=== PATIENT | male | born 1980 | race Caucasian/White ===

== ENCOUNTER 2018-01-29 14:06 | Emergency (ER) | payer SELFPAY ==
[2018-01-29 14:10] VITALS: BP 180/123; PULSE 86; RESP 18; TEMP 36.4; O2SAT 98
--- NOTE | 2018-01-29 14:21 | ED.GENADUL_ITS ---
Disposition Clinical Impression: Infected dental caries, Partial loss of tooth due to caries Disposition: HOME Condition: Stable Instructions: Dental Caries (ED) Additional Instructions: Return immediately to the emergency department for any swelling of your tongue, back your throat, high fever chills, difficulty breathing or swallowing, or significant worsening of symptoms. Otherwise it is very important that you obtain a dental appointment as soon as possible and follow-up with your primary care provider next week for reassessment. Prescriptions: Clindamycin [Cleocin] 450 mg PO Q8H #63 cap Diclofenac Sodium 50 mg PO Q8H PRN #15 tablet. PRVan Reason: Pain Topiramate [Topamax] 50 mg PO HS #7 tab TraMADol [Ultram] 50 mg PO Q8H PRN #6 tab PRN Reason: Severe Pain Referrals: [facility] [Provider Group] - 02/04/18 10:15 am (For reassessment of your dental condition along with refill of your normal prescribed medications.) Forms: Work Release Medical Decision Making - Medical Decision Making Patient presenting to the emergency department for for fractured tooth that occurred 1 month ago with worsening pain and discomfort. Upon evaluation there is severe pulp exposure to tooth #3 and 4 both of them being partially fractured and erythema with mild gingival enlargement surrounding these teeth. There is concern for infection so plan to place patient on clindamycin due to penicillin allergy. For pain control patient consented to dental block and so 1 mL of 0.5% Marcaine was instilled into the base of these teeth. After waiting 10 minutes patient was reassessed and states that he did have relief pain surrounding tooth #4 but not as much to tooth #3. Patient was offered to have additional dental block performed and he stated that he felt some reduction in discomfort and did not want additional dental block performed. Given the patient is still having significant discomfort he was given 1 tramadol. I personally reviewed the [place] drug database on this patient and find no suspicion of opioid abuse. Informed patient of risks versus benefits of narcotic pain control along with non-opiate pain relievers that he may utilize while on prescribed medications. Patient consented to receiving opiate pain meds. Patient also was prescribed limited supply of tramadol for home use along with diclofenac and informed to stop or gels as I feel that he is overusing these along with ibuprofen while on diclofenac. After discussion of diagnosis and plan of care with patient patient agreed and stated no further needs, questions, or concerns at this time. History of Present Illness - General Chief complaint: DentalOral Stated complaint: NAUSEA/VOMITING TOOTH INFECTION Time Seen by Provider: 01/29/18 14:08 Source: patient, RN notes reviewed Mode of arrival: ambulatory Limitations: no limitations - History of Present Illness Initial comments: Reports 1 month ago he was biting down on a hamburger and bit a hard piece of cartilage and felt his right upper tooth break. Since then he has had pain and discomfort which is been manageable but has had worsening symptoms over the past 2 weeks. Approximately 1 week ago he stated 3 days of fever and chills that went along with this and he is missed the past 2 days of work due to severe pain. He states he has been taking a significant amount of ibuprofen and Orajel that is making his stomach upset. Patient states that he has had poor dentition for a while and has been unable to see a dentist due to lack of dental insurance. He does state that his dental insurance will begin in 2 weeks and he is planning on seeing a dentist at that time. Patient denies any difficulty breathing, swallowing. Onset/Timin -: month(s) Location: mouth Severity scale (1-10): 10 Quality: sharp Consistency: constant Improves with: none Worsens with: none Associated Symptoms: denies other symptoms Treatments Prior to Arrival: NSAID - Related Data Omeprazole [Prilosec] 40 mg PO DAILY PRN 09/27/12 Ibuprofen 600 mg PO DAILY PRN PRN 12/23/16 Clindamycin [Cleocin] 450 mg PO Q8H #63 cap 01/29/18 Diclofenac Sodium 50 mg PO Q8H PRN #15 tablet. 01/29/18 Topiramate [Topamax] 50 mg PO HS #7 tab 01/29/18 TraMADol [Ultram] 50 mg PO Q8H PRN #6 tab 01/29/18 Allergies Allergy/AdvReac Type Severity Reaction Status Date / Time Sulfa (Sulfonamide Allergy Intermediate NAUSEA AND Unverified 01/29/18 14:19 Antibiotics) HEADACHE penicillin V potassium Allergy Skin Rash Unverified 01/29/18 14:19 [From Pen-Vee K] ziprasidone HCl [From Geodon] Allergy SEDATION, Unverified 01/29/18 14:19 TREMOR codeine AdvReac hyper Unverified 01/29/18 14:19 NICOTINE PATCH Allergy Intermediate RASH Uncoded 01/29/18 14:19 Review of Systems Constitutional: chills, fever, malaise. denies: diaphoresis Eyes: denies: vision change ENT: dental pain. denies: ear pain, throat pain, congestion Respiratory: denies: cough, stridor, wheezing Gastrointestinal: nausea (Due to amount of ibuprofen he has been taking) Comment: All other systems reviewed and negative Past Medical History - Past Medical History Medical history: asthma migraines, asthma, hep c, bipolar, GERD. Surgical history: appendectomy - Social History Smoking status: current everyday smoker Alcohol use: none Drug use: marijuana General Exam - General Limitations: no limitations General appearance: alert, other (In obvious discomfort holding right side of face) - Eye Eye exam: Present: normal apperance - ENT ENT exam: Present: mucous membranes moist, TM's normal bilaterally, normal external ear exam - Expanded ENT Exam No standard instances Mouth exam: Present: tongue normal. Absent: drooling, trismus, muffled voice, tongue elevation Teeth exam: Present: dental caries (Throughout entire oral cavity), fractured tooth # (Of concern is fracture tooth #3 and 4 with exposed pulp), gingival enlargement (Surrounding tooth 3 and 4), other (Patient has multiple missing teeth and fractured teeth throughout oral cavity with very poor dentition) - Neck Neck exam: Present: normal inspection, full ROM. Absent: meningismus, lymphadenopathy - Respiratory Respiratory exam: Absent: respiratory distress, wheezes, stridor - Neurological Exam Neurological exam: Present: alert, oriented X3. Absent: altered - Skin Skin exam: Present: warm, dry Course Vital Signs - 24 hr 01/29/18 14:10 Temperature 36.4 C L Pulse 86 Respiratory 18 Rate Blood Pressure 180/123 Pulse Oximetry 98
[2018-01-29] MEDS: Clindamycin 150 MG CAP 450 MG PO (14:31)
[2018-01-29] MEDS: Bupivacaine 0.5% Pres-Free 30 ML VIAL IJ (14:32)
--- NOTE | 2018-01-29 14:45 | NUR.NOTE ---
Nursing Note: Appt. with Preston Galeana at [facility] on @ 1015. Deepa Bergman.
[2018-01-29] MEDS: traMADol 50 MG TAB PO (15:15)
[2018-01-29 15:23] VITALS: BP 143/93; PULSE 74; RESP 18; TEMP 36.8; O2SAT 99
== END 2018-01-29 15:25 | disposition home or self-care (01) ==
PROVIDERS: Emergency Provider Student in an Organized Health Care Education/Training Program; PCP Specialist/Technologist Athletic Trainer
DX: K02.9 Dental caries, unspecified (principal); Z88.0 Allergy status to penicillin
CPT/HCPCS: 64402; 99283

== ENCOUNTER 2018-07-10 12:07 | Emergency (ER) | payer SELFPAY ==
[2018-07-10 12:11] VITALS: BP 140/68; PULSE 65; RESP 18; TEMP 36.7; O2SAT 96
--- NOTE | 2018-07-10 15:18 | NUR.NOTE ---
assessed eye patient to the [facility] Nursing Note:
--- NOTE | 2018-07-10 15:20 | W.ED.GENAD ---
Discharge Plan Disposition Patient Disposition: HOME Condition: Stable Discharge Details Chief Complaint: EyeProblem Clinical Impression: Conjunctivitis, Blurred vision, Photophobia Primary Care Provider: Preston Galeana ED Provider: Edelmira Morales Home Meds and New Rx's Prescriptions: Continued omeprazole [Prilosec] 40 MG capsule,delayed release(DR/EC) 40 mg PO DAILY PRNRF: 0 ibuprofen 600 MG tablet 600 mg PO DAILY PRN PRNRF: 0 topiramate [Topamax] 50 MG tablet 50 mg PO HS Qty: 7 RF: 0 Discharge Instructions Instructions: Conjunctivitis (ED) Additional Instructions: Go directly to [facility] ([phone]) in [facility]. You will be evaluated there for further instructions regarding possible infection versus another cause to your symptoms. Return immediately to the emergency department any worsening or new concerning symptoms. Discharge Data Discharge Physician: Edelmira Morales Medical Decision Making 29-year-old male who presents with left eye blurry vision, eye pain, white and yellow discharge, photophobia for the past 2 days after getting metal bits into his eye at work states he was able to remove majority of the metal bits with flushing. Tetanus up-to-date. OD 20/30, OS 20/70. Vitals within normal limits. Patient appears nontoxic. Left eye appears irritated, with clear and yellow drainage, and conjunctival injection. No obvious foreign body with eyelid eversion or slit-lamp exam. No abnormal fluorescein uptake. Upon funduscopic exam, vessels appear normal but there is a red haziness noted. No afferent pupillary defect, but patient does have pain in left eye when light shown in right eye. Patient has injection and yellow discharge, this would be consistent with conjunctivitis, however with photophobia and pain with pupillary constriction, concerned about another acute process. Discussed with [facility] and they will evaluate patient now. Patient discharged to [facility]. They will give antibiotics if needed. HPI General Mode of arrival: ambulatory. Date/Time Provider Initiated Documentation: 07/10/18 12:23. Limitations to Documentation: no limitations. Information obtained by: patient. HPI Narrative: Patient is a 37-year-old male who presents to the ED with a complaint of left eye blurry vision, irritation, photophobia as well as mucousy white and yellow discharge for the past 2 days. Patient states symptoms started after he got metal chips into his eye while at work. Patient states he rubbed his eye and was able to remove multiple small pieces of metal but then still has sensation of pain irritation and blurry vision. Patient states when he looks at the son he has worsening pain. Patient flushed his eye with water, use Q-tips, and ran it under water in the shower without relief. Patient does not wear contacts. Last tetanus up-to-date 4 years ago. Related Data Home Medications Medication Instructions Recorded Confirmed omeprazole [Prilosec] 40 mg PO DAILY PRN 09/27/12 07/10/18 ibuprofen 600 mg PO DAILY PRN PRN 12/23/16 07/10/18 topiramate [Topamax] 50 mg PO HS #7 tab 01/29/18 07/10/18 Previous Rx's Medication Instructions Recorded topiramate [Topamax] 50 mg PO HS #7 tab 01/29/18 Allergies Allergy/AdvReac Type Severity Reaction Status Date / Time Sulfa (Sulfonamide Allergy Intermediate NAUSEA AND Unverified 01/29/18 14:19 Antibiotics) HEADACHE penicillin V potassium Allergy Skin Rash Unverified 01/29/18 14:19 [From Pen-Vee K] ziprasidone HCl [From Geodon] Allergy SEDATION, Unverified 01/29/18 14:19 TREMOR codeine AdvReac hyper Unverified 01/29/18 14:19 NICOTINE PATCH Allergy Intermediate RASH Uncoded 01/29/18 14:19 General Stated Complaint: EyeProblem CHACORTA: 4 Review of Systems Review of Systems All systems reviewed & are unremarkable except as noted in HPI and below Constitutional Reports as per HPI, Denies chills and Denies fever(s) Eyes Reports blurry vision, Reports eye discharge, Reports eye pain and Reports photophobia ENT Denies dizziness, Denies sore throat and Denies throat swelling Cardiovascular Denies chest pain and Denies dyspnea Respiratory Denies dyspnea Gastrointestinal Denies abdominal pain, Denies diarrhea and Denies vomiting Genitourinary Denies hematuria and Denies dysuria Musculoskeletal Denies back pain and Denies numbness Integumentary/Breasts Denies lesions and Denies rash Neurologic Denies dizziness and Denies numbness Allergic/Immunologic Denies throat swelling [facility] Medical History Asthma (Chronic) Bipolar disorder (Chronic) COPD (chronic obstructive pulmonary disease) (Chronic) Depression (Chronic) GERD (gastroesophageal reflux disease) (Chronic) Hepatitis C (Chronic) Surgical History History of appendectomy (Chronic) Social History Smoking/Tobacco Use Status: Current every day alcohol intake: current alcohol intake frequency: a few times a week substance use type: does not use Exam Const General: cooperative, healthy appearing and no acute distress HENMT Head: normal to inspection Mouth: oral mucosae normal Eyes Periorbital: periorbital findings normal Eyelids: eyelids normal Conjunctivae: conjunctival abnormality left conjunctival injection and other (yellow discharge on exam) Cornea: corneas normal Pupils: PERRL EOM: EOM intact bilaterally Direct ophthalmoscopy: consensual photophobia positive consensual response in the left eye and no papilledema Neck Neck: normal visual inspection Resp Effort & Inspection: normal respiratory effort and able to speak in complete sentences Cardio Rate: regular rate Skin General skin exam: no rashes or lesions noted Neuro General: alert, awake and oriented x3 Motor: muscle tone normal throughout Extrem General: normal to inspection and full ROM Psych Appearance: grossly normal Affect: normal affect Course Vital Signs Temperature 98.1 F 07/10/18 12:11 Pulse 65 07/10/18 12:11 Respiratory Rate 18 07/10/18 12:11 Blood Pressure 140/68 07/10/18 12:11 Pulse Oximetry 96 07/10/18 12:11 Temperature 98.1 F 07/10/18 12:11 Temperature Source Temporal Artery Scan 07/10/18 12:11 Pulse 65 07/10/18 12:11 Respiratory Rate 18 07/10/18 12:11 Blood Pressure 140/68 07/10/18 12:11 Pulse Oximetry 96 07/10/18 12:11 Oxygen Delivery Method Room Air 07/10/18 12:11 Oxygen Flow Rate 0 07/10/18 12:11
--- NOTE | 2018-07-10 15:24 | ED.GENADUL_ITS ---
Discharge Plan Disposition Patient Disposition: HOME Condition: Stable Discharge Details Chief Complaint: EyeProblem Clinical Impression: Conjunctivitis, Blurred vision, Photophobia Primary Care Provider: Preston Galeana ED Provider: Edelmira Morales Home Meds and New Rx's Prescriptions: Continued omeprazole [Prilosec] 40 MG capsule,delayed release(DR/EC) 40 mg PO DAILY PRNRF: 0 ibuprofen 600 MG tablet 600 mg PO DAILY PRN PRNRF: 0 topiramate [Topamax] 50 MG tablet 50 mg PO HS Qty: 7 RF: 0 Discharge Instructions Instructions: Conjunctivitis (ED) Additional Instructions: Go directly to [facility] ([phone]) in [facility]. You will be evaluated there for further instructions regarding possible infection versus another cause to your symptoms. Return immediately to the emergency department any worsening or new concerning symptoms. Discharge Data Discharge Physician: Edelmira Morales Medical Decision Making 29-year-old male who presents with left eye blurry vision, eye pain, white and yellow discharge, photophobia for the past 2 days after getting metal bits into his eye at work states he was able to remove majority of the metal bits with flushing. Tetanus up-to-date. OD 20/30, OS 20/70. Vitals within normal limits. Patient appears nontoxic. Left eye appears irritated, with clear and yellow drainage, and conjunctival injection. No obvious foreign body with eyelid eversion or slit-lamp exam. No abnormal fluorescein uptake. Upon funduscopic exam, vessels appear normal but there is a red haziness noted. No afferent pupillary defect, but patient does have pain in left eye when light shown in right eye. Patient has injection and yellow discharge, this would be consistent with conjunctivitis, however with photophobia and pain with pupillary constriction, concerned about another acute process. Discussed with [facility] and they will evaluate patient now. Patient discharged to go directly to [facility] now. They will give antibiotics if needed. HPI General Mode of arrival: ambulatory . Date/Time Provider Initiated Documentation: 07/10/18 12:23 . Limitations to Documentation: no limitations . Information obtained by: patient . HPI Narrative: Patient is a 37-year-old male who presents to the ED with a complaint of left eye blurry vision, irritation, photophobia as well as mucousy white and yellow discharge for the past 2 days. Patient states symptoms started after he got metal chips into his eye while at work. Patient states he rubbed his eye and was able to remove multiple small pieces of metal but then still has sensation of pain irritation and blurry vision. Patient states when he looks at the son he has worsening pain. Patient flushed his eye with water, use Q-tips, and ran it under water in the shower without relief. Patient does not wear contacts. Last tetanus up-to-date 4 years ago. Related Data Home Medications Medication Instructions Recorded Confirmed omeprazole [Prilosec] 40 mg PO DAILY PRN 09/27/12 07/10/18 ibuprofen 600 mg PO DAILY PRN PRN 12/23/16 07/10/18 topiramate [Topamax] 50 mg PO HS #7 tab 01/29/18 07/10/18 Previous Rx's Medication Instructions Recorded topiramate [Topamax] 50 mg PO HS #7 tab 01/29/18 Allergies Allergy/AdvReac Type Severity Reaction Status Date / Time Sulfa (Sulfonamide Allergy Intermediate NAUSEA AND Unverified 01/29/18 14:19 Antibiotics) HEADACHE penicillin V potassium Allergy Skin Rash Unverified 01/29/18 14:19 [From Pen-Vee K] ziprasidone HCl [From Geodon] Allergy SEDATION, Unverified 01/29/18 14:19 TREMOR codeine AdvReac hyper Unverified 01/29/18 14:19 NICOTINE PATCH Allergy Intermediate RASH Uncoded 01/29/18 14:19 General Stated Complaint: EyeProblem CHACORTA: 4 Review of Systems Review of Systems All systems reviewed & are unremarkable except as noted in HPI and below Constitutional Reports as per HPI, Denies chills and Denies fever(s) Eyes Reports blurry vision, Reports eye discharge, Reports eye pain and Reports photophobia ENT Denies dizziness, Denies sore throat and Denies throat swelling Cardiovascular Denies chest pain and Denies dyspnea Respiratory Denies dyspnea Gastrointestinal Denies abdominal pain, Denies diarrhea and Denies vomiting Genitourinary Denies hematuria and Denies dysuria Musculoskeletal Denies back pain and Denies numbness Integumentary/Breasts Denies lesions and Denies rash Neurologic Denies dizziness and Denies numbness Allergic/Immunologic Denies throat swelling [facility] Medical History Asthma (Chronic) Bipolar disorder (Chronic) COPD (chronic obstructive pulmonary disease) (Chronic) Depression (Chronic) GERD (gastroesophageal reflux disease) (Chronic) Hepatitis C (Chronic) Surgical History History of appendectomy (Chronic) Social History Smoking/Tobacco Use Status: Current every day alcohol intake: current alcohol intake frequency: a few times a week substance use type: does not use Exam Const General: cooperative, healthy appearing and no acute distress HENMT Head: normal to inspection Mouth: oral mucosae normal Eyes Periorbital: periorbital findings normal Eyelids: eyelids normal Conjunctivae: conjunctival abnormality left conjunctival injection and other (yellow discharge on exam) Cornea: corneas normal Pupils: PERRL EOM: EOM intact bilaterally Direct ophthalmoscopy: consensual photophobia positive consensual response in the left eye and no papilledema Neck Neck: normal visual inspection Resp Effort & Inspection: normal respiratory effort and able to speak in complete sentences Cardio Rate: regular rate Skin General skin exam: no rashes or lesions noted Neuro General: alert, awake and oriented x3 Motor: muscle tone normal throughout Extrem General: normal to inspection and full ROM Psych Appearance: grossly normal Affect: normal affect Course Vital Signs Temperature 98.1 F 07/10/18 12:11 Pulse 65 07/10/18 12:11 Respiratory Rate 18 07/10/18 12:11 Blood Pressure 140/68 07/10/18 12:11 Pulse Oximetry 96 07/10/18 12:11 Temperature 98.1 F 07/10/18 12:11 Temperature Source Temporal Artery Scan 07/10/18 12:11 Pulse 65 07/10/18 12:11 Respiratory Rate 18 07/10/18 12:11 Blood Pressure 140/68 07/10/18 12:11 Pulse Oximetry 96 07/10/18 12:11 Oxygen Delivery Method Room Air 07/10/18 12:11 Oxygen Flow Rate 0 07/10/18 12:11
== END 2018-07-10 15:30 | disposition home or self-care (01) ==
PROVIDERS: Emergency Provider Physician Assistant; PCP Specialist/Technologist Athletic Trainer
DX: H10.32 Unspecified acute conjunctivitis, left eye (principal); H53.8 Other visual disturbances; H53.142 Visual discomfort, left eye; J44.9 Chronic obstructive pulmonary disease, unspecified; F17.210 Nicotine dependence, cigarettes, uncomplicated
CPT/HCPCS: 99283

== ENCOUNTER 2019-04-28 09:47 | Emergency (ER) | payer SELFPAY ==
[2019-04-28 09:53] VITALS: BP 147/84; PULSE 84; RESP 16; TEMP 37; O2SAT 98
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
[2019-04-28] MEDS: Normal Saline Flush 10 ML SYR IVP (10:35)
[2019-04-28] MEDS: Ketorolac 30 MG/ML VIAL IVP (10:35)
[2019-04-28] MEDS: Normal Saline 1,000 ML 150 ML IV (10:38)
[2019-04-28 10:39] LABS: Abs Immature Grans 0.01 k/cumm (0.0-0.09); Absolute Basophil Count 0.02 k/cumm (0.0-0.2); Absolute Eosinophil Count 0.06 k/cumm (0.0-0.7); Absolute Lymphocyte Count 2.45 k/cumm (1.2-3.4); Absolute Neutrophil Count 4.86 k/cumm (1.2-6.7); Basophils % 0.2; Eosinophils % 0.7; HCT 46.6 % (40.0-50.0); HGB 15.8 g/dL (13.5-17.5); Immature Grans % 0.1; Lymphocytes % 30.2; Mean Corp. HGB Concentration 33.9 g/dL (32.0-36.0); Mean Corpuscular Hemoglobin 30.1 pg (27.0-33.0); Mean Corpuscular Volume 88.8 fL (80-95); Mean Platelet Volume 10.6 fL (8.0-11.0); Monocytes % 8.6; Neutrophils % 60.2; Platelet Count 278 x1000/uL (130-400); RBC 5.25 m/cumm (4.50-6.00); RBC Distribution Width 12.5 % (11.8-14.1)
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
[2019-04-28 10:50] LABS: ALT 60 U/L (16-63); AST 28 U/L (15-37); Albumin 4.2 g/dL (3.4-5.0); Alkaline Phosphatase 55 U/L (46-116); Anion Gap 8.8 mmol/L (3-11); BUN 7 mg/dL (7-18); Bilirubin, Total 0.5 mg/dL (0.2-1.0); CO2 25.2 mmol/L (21.0-32.0); CREATININE 0.77 mg/dL (0.70-1.30); Calcium 8.8 mg/dL (8.5-10.1); Chloride 104 mmol/L (98-107); Glucose 97 mg/dL (70-100); Potassium 3.9 mmol/L (3.5-5.1); Sodium 138 mmol/L (136-145); Total Protein 8.1 g/dL (6.4-8.2)
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
[2019-04-28] MEDS: Omnipaque 350 MG/ML 100 ML BTL IJ (10:57)
[2019-04-28] MEDS: Lidocaine 5% Patch 1 PATCH TP (12:11)
[2019-04-28 12:21] VITALS: BP 156/99; PULSE 74; O2SAT 98
== END 2019-04-28 12:30 | disposition home or self-care (01) ==
PROVIDERS: Emergency Provider Emergency Medicine; PCP Specialist/Technologist Athletic Trainer
DX: S39.012A Strain of muscle, fascia and tendon of lower back, initial encounter (principal); J44.9 Chronic obstructive pulmonary disease, unspecified; F17.210 Nicotine dependence, cigarettes, uncomplicated; V40.0XXA Car driver injured in collision with pedestrian or animal in nontraffic accident, initial encounter
CPT/HCPCS: 36415; 74177; 80053; 96361; 96374; 99285; 70450; 71260; 72125; 85025; 99284; J1885; J3490

== ENCOUNTER 2019-09-04 06:26 | Emergency (ER) | payer SELFPAY ==
[2019-09-04 06:29] VITALS: BP 124/76; PULSE 104; RESP 22; TEMP 36.9; O2SAT 95
--- NOTE | 2019-09-04 06:49 | ED.GENADUL_ITS ---
Discharge Plan Disposition Patient Disposition: HOME Condition: Good Discharge Details Chief Complaint: RespSymp Clinical Impression: Community acquired pneumonia, Viral URI with cough Primary Care Provider: Preston Galeana ED Provider: Aaron Dyer Home Meds and New Rx's Prescriptions: New doxycycline hyclate 100 mg tablet 100 mg PO BID Qty: 20 RF: 0 Discharge Instructions Instructions: Pneumonia (ED) Additional Instructions: At this time I am concerned that you have clinical evidence for left-sided pneumonia. Please take the antibiotic as directed. Take it with food, and avoid any dairy while taking this. Please use your inhaler, 2 puffs every 4-6 hours as needed. At this time your symptoms are very concerning for coronavirus. Due to the increased likelihood of your symptoms being from coronavirus the CDC does recommend testing. It takes 48 to 72 hours at the earliest for the test results to return. If you do not hear from the hospital in 48 to 72 hours, please contact [facility]. Out of an abundance of precaution it is highly recommended that you self quarantine yourself for a total of 14 days or until symptom-free for greater than 24 to 48 hours. It would be prudent to wear a mask at all times, always wash her hands frequently, and follow-up closely with your primary care provider. It is recommended that you call your primary care provider prior to reassessment. If you are going to a health facility, please call/contact them before you arrive. At this time based on your current symptoms the CDC does not recommend admission, and there is no current clinical indication for your admission here at the hospital. However it is vitally important to monitor your symptoms closely, and if you notice any worsening of your symptoms, or any new symptoms such as worsening shortness of breath, difficulty breathing, persistent fever, worsening chills, chest pain, numbness, weakness, or fainting please call and then return immediately to the emergency department for reevaluation. Please call your primary care provider as soon as possible to make them aware of your current situation and for continued monitoring. As always, it was a pleasure participating in your medical care today. Stand Alone Forms: PENDING COVID-19 TESTING Referrals: Preston Galeana [Primary Care Provider] - Medical Decision Making 39-year-old male with a past medical history of asthma/COPD, tobacco abuse, previous appendectomy, hepatitis C secondary to blood transfusion during episode of appendectomy, presents today for evaluation of cough. Patient works at [employer]. Patient states that for the last week and 1/2 to 2 weeks he has had a mild cough, he has had occasional intermittent chills, no fever greater than 100 though. Symptoms worse in the morning, better in the afternoon. Cough is been productive and progressively worsening. He did admit to a single episode where there was a small speck of blood in his sputum, but this is since resolved. Patient does admit to shortness of breath with his cough, however he denies any chest pain, exertional chest pain or pleuritic chest pain. Of concern the patient does work at [employer], his boss is from [place], and recently just went to a conference which had multiple confirmed Covid cases. Uncertain if boss has tested positive however he has been out of work secondary to being sick just before the patient symptoms began. Denies PE risk factors such as recent long car rides, immobilization, recent surgery, prior history of DVT or PE, family history of PE or DVT, morbid obesity, exogenous estrogen and smoking, hemoptysis, history of cancer. Patient does not use any breathing treatments. Physical exam demonstrates no evidence of significant respiratory distress. Patient does demonstrate crackles in the left lower lobe. No rhonchi, no wheezes. Symptoms concerning for community-acquired pneumonia. Patient did not receive his flu shot this year. Differential is highest for bacterial pneumonia, and potential influenza. Less likely but definitely of concern is possible coronavirus. We will test for flu, get chest x-ray, give inhaler, monitor closely and reassess. Influenza test negative. Chest x-ray negative. Currently the patient does have a concerning contact history to a high risk area, and/or direct or known indirect exposure to an area and/or patient's with suspected coronavirus activity. The patient demonstrates some concerning red flags as noted by the CDC for coronavirus including subjective fever, cough, and/or shortness of breath. The patient looks notably clinically well, and does not demonstrate evidence of respiratory distress, significant or severe illness, or sepsis. Per CDC recommendations, coronavirus testing has been performed and is approved by the [facility]. Additionally patient currently does not demonstrate symptoms indicative of admission or further observation here. At this time based on the patient's current clinical picture symptoms are likely secondary to a non- coronavirus viral illness. However the patient also does demonstrate evidence concerning for clinical left-sided pneumonia, we will treat with doxycycline, and given inhaler for home use. Out of an abundance of precaution taking into account the current level of national concern, the patient's entire clinical picture, and CDC recommendations, the patient can be discharged home. Per CDC recommendations we will recommend a 14-day quarantine of the patient I have discussed good handwashing techniques, the importance of a mask, and we have also included CDC recommendations for home monitoring and isolation. I have extensively reviewed the treatment plan and [facility] I have addressed all patient concerns at this time. The patient was made aware of what symptoms to monitor for that would warrant a return to the emergency department. I also discussed the importance of calling the patient's PCP, as well as the ED for any concerns or prior to return. Discussed the plan with the patient, they demonstrate verbal understanding and agreement with our assessment and plan at this time. FINDINGS: Lungs: Unremarkable. No consolidation. Pleural space: Unremarkable. No pleural effusion. No pneumothorax. Heart/Mediastinum: Unremarkable. No cardiomegaly. Bones/joints: Unremarkable. IMPRESSION: No acute findings. Thank you for allowing us to participate in the care of your patient. Dictated and Authenticated by: Debbie Pereira MD 09/04/2019 7:42 AM Eastern Time ([place] & [place]) HPI General Date/Time Provider Initiated Documentation: 09/04/19 06:32 . HPI Narrative: 39-year-old male with a past medical history of asthma/COPD, tobacco abuse, previous appendectomy, hepatitis C secondary to blood transfusion during episode of appendectomy, presents today for evaluation of cough. Patient works at [employer]. Patient states that for the last week and 1/2 to 2 weeks he has had a mild cough, he has had occasional intermittent chills, no fever greater than 100 though. Symptoms worse in the morning, better in the afternoon. Cough is been productive and progressively worsening. He did admit to a single episode where there was a small speck of blood in his sputum, but this is since resolved. Patient does admit to shortness of breath with his cough, however he denies any chest pain, exertional chest pain or pleuritic chest pain. Denies PE risk factors such as recent long car rides, immobilization, recent surgery, prior history of DVT or PE, family history of PE or DVT, morbid obesity, exogenous estrogen and smoking, hemoptysis, history of cancer. Patient does not use any breathing treatments. Related Data Home Medications Medication Instructions Recorded Confirmed doxycycline hyclate 100 mg PO BID #20 tab 09/04/19 Previous Rx's Medication Instructions Recorded doxycycline hyclate 100 mg PO BID #20 tab 09/04/19 Allergies Allergy/AdvReac Type Severity Reaction Status Date / Time nicotine [From Nicoderm CQ] Allergy Intermediate Skin Rash Unverified 09/04/19 06:33 from patch penicillin V potassium Allergy Skin Rash Unverified 09/04/19 06:33 [From Pen-Vee K] Sulfa (Sulfonamide AdvReac Intermediate NAUSEA AND Unverified 09/04/19 06:33 Antibiotics) HEADACHE codeine AdvReac hyper Unverified 09/04/19 06:33 ziprasidone HCl [From Geodon] AdvReac SEDATION, Unverified 09/04/19 06:33 TREMOR General Stated Complaint: RespSymp CHACORTA: 3 Review of Systems All systems reviewed & are unremarkable except as noted in HPI and below PFSH Social History Smoking/Tobacco Use Status: Current every day Alcohol Intake: current Alcohol Intake frequency: a few times a week Drug use: Occasionally Substance use type: marijuana Do you feel safe at home: Yes Do you feel safe in your relationship?: Yes Exam Narrative Exam Narrative: 1.Const: Well-nourished, Well-developed, appearing stated age 2.Eyes: PERRL, no conjunctival injection, and symmetrical lids. 3.ENT: Atraumatic external nose and ears. Moist MM. Neck: Symmetric, trachea midline, No thyromegaly. 4.CVS: +S1/S2, No murmurs or gallops. Peripheral pulses 2+ and equal in all extremities. Brisk capillary refill in all extremities. 5.RESP: Unlabored respiratory effort. Oxygenation stable, no respiratory distress. Crackles noted in the left lower lung lobe. No rhonchi. No wheeze. 6.GI: Soft, Nontender/Nondistended, No hepatosplenomegaly. No guarding or rebound. 7.MSK: Normocephalic/Atraumatic, Extremities w/o deformity or ttp No cyanosis or clubbing, Normal movement of all extremities 8.Skin: Warm, Dry. No rashes or lesions. 9.Neuro: delivery rn II-XII grossly intact. Sensation grossly intact, no focal neurol ogic deficits. 10.Psych: (AAO) x3. Appropriate mood and affect Course Vital Signs Vital signs: Vital Signs Temperature 36.9 C 09/04/19 06:29 Pulse 104 H 09/04/19 06:29 Respiratory Rate 22 09/04/19 06:29 Blood Pressure 124/76 09/04/19 06:29 Pulse Oximetry 95 09/04/19 06:29 Temperature 36.9 C 09/04/19 06:29 Temperature Source Oral 09/04/19 06:29 Pulse 104 H 09/04/19 06:29 Respiratory Rate 22 09/04/19 06:29 Respiratory Effort Non-Labored 09/04/19 06:33 Respiratory Depth Normal 09/04/19 06:33 Blood Pressure 124/76 09/04/19 06:29 Blood Pressure Position Sitting 09/04/19 06:29 Pulse Oximetry 95 09/04/19 06:29 Oxygen Delivery Method Room Air 09/04/19 06:29 Oxygen Flow Rate 0 09/04/19 06:29 Pain Level 8 09/04/19 06:29 Sign Out Sign Out Data: Sign Out Comment: Discharge instructions and prescription has been signed and printed. Pending chest x-ray results and flu testing. Suspect community- acquired pneumonia, recommending COVID precautions. Last updated by Aaron Dyer DO at 09/04/19 07:38
--- NOTE | 2019-09-04 07:04 | DI.RAD_ITS ---
EXAM: XR PORTABLE CHEST AP XR PORTABLE CHEST AP CLINICAL HISTORY: evla for infiltrate. evla for infiltrate TECHNIQUE: 2D digital imaging was performed. COMPARISON: CHEST 2 VIEWS PA,LAT from 12/11/2016 FINDINGS: LUNGS: Clear. No pleural abnormality seen. HEART: Normal. MEDIASTINUM: Normal. OTHER FINDINGS: None. IMPRESSION: No acute pulmonary findings. DATA REPOSITORY: RADIATION DOSE DELIVERED:
[2019-09-04] MEDS: Albuterol HFA 8 GM 60 PUFF INH IH (07:08)
[2019-09-04] MEDS: Doxycycline Hyclate 100 MG, 2 CAPS/BTL PO (07:23)
[2019-09-04] MEDS: Doxycycline Hyclate 100 MG CAP PO (07:23)
--- NOTE | 2019-09-04 07:42 | DI.VRAD_ITS ---
PROCEDURE INFORMATION: Exam: XR Chest, 1 View Exam date and time: 09/04/2019 7:05 AM Age: 39 years old Clinical indication: Cough; Additional info: Eval for infiltrate TECHNIQUE: Imaging protocol: XR of the chest Views: 1 view. COMPARISON: CR CHEST 2 VIEWS PA,LAT 12/11/2016 1:04 PM FINDINGS: Lungs: Unremarkable. No consolidation. Pleural space: Unremarkable. No pleural effusion. No pneumothorax. Heart/Mediastinum: Unremarkable. No cardiomegaly. Bones/joints: Unremarkable. IMPRESSION: No acute findings. Dictated and Authenticated by: Debbie Pereira MD. Ordering:ANDRES Walker MD
[2019-09-04 08:04] VITALS: BP 124/76; PULSE 104; RESP 22; TEMP 36.9; O2SAT 95
[2019-09-08 10:57] LABS: COVID-19 RT-PCR Result Not Detected (NotDetected)
== END 2019-09-04 08:06 | disposition home or self-care (01) ==
PROVIDERS: Emergency Provider Student in an Organized Health Care Education/Training Program; PCP Specialist/Technologist Athletic Trainer
DX: J18.8 Other pneumonia, unspecified organism (principal); J06.9 Acute upper respiratory infection, unspecified; J44.9 Chronic obstructive pulmonary disease, unspecified; F17.210 Nicotine dependence, cigarettes, uncomplicated
CPT/HCPCS: 87449; 99283; U0003; 71045

== ENCOUNTER 2020-12-04 11:48 | Outpatient (REF) | payer SELFPAY ==
[2020-12-05 11:36] LABS: COVID-19 RT-PCR UVMMC Result Negative (Negative)
== END 2020-12-04 11:49 | disposition home or self-care (01) ==
LOC: NCHCN 11:48
PROVIDERS: PCP Specialist/Technologist Athletic Trainer; Visit Provider Physician Assistant
DX: Z20.822 Contact with and (suspected) exposure to COVID-19 (principal); R05 Cough
CPT/HCPCS: U0003

== ENCOUNTER 2020-12-25 12:52 | Outpatient (REF) | payer SELFPAY ==
[2020-12-27 15:25] LABS: Chlamydia Result Negative (Negative); GC Result Negative (Negative)
== END 2020-12-25 12:53 | disposition home or self-care (01) ==
LOC: NCHCN 12:52
PROVIDERS: PCP Specialist/Technologist Athletic Trainer; Visit Provider Nurse Practitioner Family
DX: Z11.3 Encounter for screening for infections with a predominantly sexual mode of transmission (principal)
CPT/HCPCS: 87491; 87591

== ENCOUNTER 2021-05-05 10:36 | Emergency (ER) | payer SELFPAY ==
--- NOTE | 2021-05-05 10:37 | ED.GENADUL_ITS ---
Discharge Plan Disposition Patient Disposition: HOME Condition: Stable Discharge Details Clinical Impression: Dental abscess Primary Care Provider: Preston Galeana ED Provider: Edelmira Morales Home Meds and New Rx's Prescriptions: New clindamycin HCl 150 mg capsule 450 mg PO TID 7 Days Qty: 63 RF: 0 tramadol 50 mg tablet 50 mg PO TID PRN (Reason: pain) Qty: 7 RF: 0 Continued albuterol sulfate [Ventolin HFA] 90 mcg/actuation HFA aerosol inhaler 1 - 2 puff inhalation .Q4-Q6H PRNRF: 0 omeprazole 40 mg capsule,delayed release(DR/EC) 40 mg PO DAILY RF: 0 Discharge Instructions Instructions: Dental Abscess (ED) Additional Instructions: Drink plenty of fluids and get plenty of rest. Prescriptions for antibiotics and pain medication have been sent electronically to your pharmacy. Take the antibiotics as directed until finished. Alternate tylenol and motrin as needed and directed for pain. Take tylenol sparingly due to your history of hepatitis C. Call a dentist to schedule a follow-up appointment for reevaluation. Follow-up with your primary care doctor for recheck of your blood pressure as it is high today. Return immediately to the emergency department if you develop any worsening or new concerning symptoms. Discharge Data Discharge Physician: Edelmira Morales Medical Decision Making 40-year-old male with a history of left upper tooth pain and swelling for the past 2 days after breaking the tooth while eating 2 days ago. There is an area of mucosal edema above a missing tooth. It is mildly fluctuant and may be consistent with abscess or local tissue swelling. Poor dentition and multiple caries throughout. Hurricaine gel applied locally to the mucosa. The area was punctured with an 18-gauge needle with adequate purulent drainage with improvement in pain. The area was irrigated with normal saline. A dose of clindamycin was given here and prescription sent electronically to his pharmacy. He was also given tramadol for pain to go. Patient was given a dental follow-up list. Usual and customary return precautions given prior to discharge. Medical Records Medical records reviewed: Yes I reviewed the patient's medical records. HPI General Mode of arrival: ambulatory . Date/Time Provider Initiated Documentation: 05/05/21 10:36 . Limitations to Documentation: no limitations . Information obtained by: patient . HPI Narrative: Patient is a 40-year-old male who presents with left upper dental pain with concern for abscess above the tooth for the past 2 days. Patient states he was eating chex mix and bit down on an almond 2 days ago and broke a tooth and has had swelling and pain just above this area since then. He also admits to left-sided facial swelling. He denies any fever. He states he denies any dental Related Data Home Medications Medication Instructions Recorded Confirmed albuterol sulfate 90 mcg/actuation 1 - 2 puff INHALATION .Q4-Q6H PRN 02/05/21 05/05/21 aerosol inhaler g omeprazole 40 mg capsule,delayed 40 mg PO DAILY 02/05/21 05/05/21 release clindamycin HCl 450 mg PO TID 7 Days #63 cap 05/05/21 tramadol 50 mg PO TID PRN #7 tab 05/05/21 Previous Rx's Medication Instructions Recorded clindamycin HCl 450 mg PO TID 7 Days #63 cap 05/05/21 tramadol 50 mg PO TID PRN #7 tab 05/05/21 Allergies Allergy/AdvReac Type Severity Reaction Status Date / Time nicotine [From Nicoderm CQ] Allergy Intermediate Skin Rash Unverified 05/05/21 10:44 from patch penicillin V potassium Allergy Skin Rash Unverified 05/05/21 10:44 [From Pen-Vee K] Sulfa (Sulfonamide AdvReac Intermediate NAUSEA AND Unverified 05/05/21 10:44 Antibiotics) HEADACHE codeine AdvReac hyper Unverified 05/05/21 10:44 ziprasidone HCl [From Geodon] AdvReac SEDATION, Unverified 05/05/21 10:44 TREMOR General CHACORTA: 3 Review of Systems All systems reviewed & are unremarkable except as noted in HPI and below Constitutional Constitutional: Reports as per HPI, Denies chills and Denies fever(s) Eyes Eyes: Denies blurry vision ENT Ears, Nose, Mouth, and Throat: Reports dental pain, Denies dizziness, Denies sore throat and Denies throat swelling Cardiovascular Cardiovascular: Denies chest pain and Denies dyspnea Respiratory Respiratory: Denies cough and Denies dyspnea Gastrointestinal Gastrointestinal: Denies abdominal pain, Denies diarrhea and Denies vomiting Genitourinary Genitourinary: Denies hematuria and Denies dysuria Musculoskeletal Musculoskeletal: Denies back pain and Denies numbness Integumentary/Breasts Skin/Breast: Denies lesions and Denies rash Neurologic Neurologic: Denies dizziness, Denies localized weakness and Denies numbness Allergic/Immunologic Allergic/Immunologic: Denies throat swelling [facility] Active Problem List (Updated 05/05/21 @ 11:13 by Edelmira Morales DO) Dental abscess (Acute) Ptosis of eyelid, left (Acute) Migraine headache with aura (Acute) Left-sided weakness (Acute) Cellulitis of foot, left (Acute) Medical History (Updated 05/05/21 @ 11:13 by Edelmira Morales DO) Asthma Bipolar disorder Cannabis abuse Chronic low back pain COPD (chronic obstructive pulmonary disease) Depression GERD (gastroesophageal reflux disease) Hepatitis C History of Helicobacter pylori infection Hx of drug abuse Hyperlipidemia PTSD (post-traumatic stress disorder) Surgical History History of appendectomy Social History Smoking/Tobacco Use Status: Current every day Smoking risk assessment performed?: Yes Alcohol Intake: current Alcohol Intake frequency: holidays/special occasions only Drug use: Occasionally Substance use type: marijuana Do you feel safe at home: Yes Do you feel safe in your relationship?: Yes Exam Const General: cooperative and no acute distress HENMT Head: normal to inspection Ears: hearing grossly normal bilaterally, external ears normal and TM's normal bilaterally General nose exam: external nose normal Mouth: oral mucosae normal Teeth and gingiva: caries and poor dentition Teeth image: 1. 1x1cm moderately tender minimally fluctuant area of mucosal edema above missing tooth. No drainage or bleeding noted. Throat: posterior oropharynx normal Eyes General: appearance normal, both eyes and all related structures Neck Neck: normal visual inspection, no lymphadenopathy, no meningeal signs, trachea midline, supple, no anterior neck swelling and No submandibular swelling Resp Effort & Inspection: normal respiratory effort and able to speak in complete sentences Cardio Rate: regular rate Skin General skin exam: no rashes or lesions noted Neuro General: patient alert, patient awake and patient oriented x3 Motor: muscle tone normal throughout Extrem General: normal to inspection and full ROM Psych Appearance: grossly normal Affect: normal affect Procedures Abscess I/D Site: Other (dental) Side (if applicable): Left Local Anesthetic: Other Anesthetic (hurricane gel, applied topically with cotton tip applicator and left in place for local anesthesia to surface of abscess prior to puncture) Technique: Other (area of most fluctuance punctured with 18gauge needle) Amount of fluid expressed (mL): 2 (purulent drainage) Irrigation: Yes Packing used?: None Complications: Pain
[2021-05-05 10:38] VITALS: BP 160/108; PULSE 88; RESP 18; TEMP 36.8; O2SAT 97
[2021-05-05] MEDS: Benzocaine 20% Gel 30 GM JAR MM (10:54)
--- NOTE | 2021-05-05 11:09 | NUR.NOTE ---
Nursing Note: Assisted provider with dental I&D.
[2021-05-05] MEDS: Clindamycin 150 MG CAP 450 MG PO (11:31)
[2021-05-05] MEDS: Ibuprofen 600 MG TAB PO (11:32)
[2021-05-05 11:35] VITALS: BP 160/108; PULSE 88; RESP 18; TEMP 36.8; O2SAT 97
== END 2021-05-05 11:36 | disposition home or self-care (01) ==
PROVIDERS: Emergency Provider Physician Assistant; PCP Specialist/Technologist Athletic Trainer
DX: K04.7 Periapical abscess without sinus (principal)
CPT/HCPCS: 41800

== ENCOUNTER 2023-10-29 12:38 | Emergency (ER) | payer SELFPAY ==
[2023-10-29 12:41] VITALS: BP 150/91; PULSE 78; RESP 18; TEMP 36.6; O2SAT 98
--- NOTE | 2023-10-29 13:06 | ED.GENADUL_ITS ---
Discharge Plan Disposition Patient Disposition: Home Condition: Stable Discharge Details Chief Complaint: Male Reproductive Problem Clinical Impression: Nodule of groin Primary Care Provider: Preston Galeana ED Provider: Héctor Valdovinos Home Meds and New Rx's Prescriptions: No Action albuterol sulfate [Ventolin HFA] 90 mcg/actuation HFA aerosol inhaler 1 - 2 puff inhalation .Q4-Q6H PRN Hold Instructions: Pt Stopped/Never Started omeprazole 40 mg capsule,delayed release(DR/EC) 40 mg PO DAILY Hold Instructions: Pt Stopped/Never Started tramadol 50 mg tablet 50 mg PO TID PRN (Reason: pain) Qty: 7 0RF Hold Instructions: Pt Stopped/Never Started Discharge Instructions Additional Instructions: Please follow-up closely with your primary care physician to arrange for possible biopsy of groin nodule. Return to the emergency department for any worsening symptoms HPI General Date/Time Provider Initiated Documentation: 10/29/23 13:06 . HPI Narrative: 43-year-old male presents with 3 weeks of lump in his right groin intermittent pain to this region. Denies change in bowel or bladder habits. No abdominal pain nausea vomiting or constipation. No testicular pain. Related Data Home Medications Medication Instructions Recorded Confirmed albuterol sulfate 90 mcg/actuation 1 - 2 puff inhalation .Q4-Q6H PRN 02/05/21 10/29/23 aerosol inhaler (Ventolin HFA) omeprazole 40 mg capsule,delayed 40 mg PO DAILY 02/05/21 10/29/23 release tramadol 50 mg tablet 50 mg PO TID PRN pain #7 tabs 05/05/21 10/29/23 Previous Rx's Medication Instructions Recorded tramadol 50 mg tablet 50 mg PO TID PRN pain #7 tabs 05/05/21 Allergies Allergy/AdvReac Type Severity Reaction Status Date / Time nicotine [From Nicoderm CQ] Allergy Intermediate Skin Rash Unverified 10/29/23 12:45 from patch penicillin V potassium Allergy Skin Rash Unverified 10/29/23 12:45 [From Pen-Vee K] Sulfa (Sulfonamide AdvReac Intermediate NAUSEA AND Unverified 10/29/23 12:45 Antibiotics) HEADACHE codeine AdvReac hyper Unverified 10/29/23 12:45 ziprasidone HCl [From Geodon] AdvReac SEDATION, Unverified 10/29/23 12:45 TREMOR General Stated Complaint: Male Reproductive Problem CHACORTA: 4 Review of Systems Narrative: Review of Systems Constitutional: negative Eyes: negative ENT: negative Cardiovascular: negative Respiratory: negative Gastrointestinal: negative : Groin nodule Musculoskeletal: negative Skin: negative Neurologic: negative Psych: negative Exam Narrative Exam Narrative: Physical Examination General: alert, awake, cooperative, resting comfortably, no acute distress HEENT: normocephalic, atraumatic Respiratory: normal respiratory effort, speaking in full sentences GI: abdomen soft, non-tender, non-distended; no palpable mass or hepatosplenomegaly : 2 cm raised nodule medial right inguinal region, no erythema induration, nonfluctuant firm in nature, mobile; normal testes, no inguinal hernias appreciated Skin: See Neuro: AAOx3, normal speech, moving all extremities Psych: Appropriate mood and affect Course Vital Signs Vital signs: Vital Signs Temperature 36.6 C 10/29/23 12:41 Pulse 78 10/29/23 12:41 Respiratory Rate 18 10/29/23 12:41 Blood Pressure 150/91 H 10/29/23 12:41 Pulse Oximetry 98 10/29/23 12:41 Temperature 36.6 C 10/29/23 12:41 Temperature Source Skin 10/29/23 12:41 Pulse 78 10/29/23 12:41 Respiratory Rate 18 10/29/23 12:41 Respiratory Effort Normal, Non-Labored 10/29/23 12:45 Blood Pressure 150/91 H 10/29/23 12:41 Blood Pressure Position Sitting 10/29/23 12:41 Pulse Oximetry 98 10/29/23 12:41 Oxygen Delivery Method Room Air 10/29/23 12:41 Oxygen Flow Rate 0 10/29/23 12:41 Pain Level 0 10/29/23 12:41 Medical Decision Making 43-year-old male presents with 3 weeks of right inguinal nodule, 2 cm in diameter, raised, nonfluctuant nonpurulent no surrounding erythema or induration, nontender, largely mobile; bedside ultrasound showing mixed density nodule no definitive fluid pocket or cobblestoning; no evidence of inguinal hernias on examination, normal testes normal external genitalia. Afebrile nontoxic. No systemic signs of illness. Consider complex cyst versus enlarged lymph node muscles consider resolving phlegmon or abscess versus malignancy. Patient counseled at length regarding differential diagnosis and will follow-up close with primary care to discuss arranging possible biopsy as an outpatient. Home care instructions and return precautions given Quality:SDOH Health Related Social Needs: No Data to Display PFSH All Active Problems (Updated 10/29/23 @ 13:15 by Hcétor Valdovinos MD) Nodule of groin (Acute) Dental abscess (Acute) Ptosis of eyelid, left (Acute) Migraine headache with aura (Acute) Left-sided weakness (Acute) Cellulitis of foot, left (Acute) Medical History (Updated 10/29/23 @ 13:15 by Héctor Valdovinos MD) Cannabis abuse PTSD (post-traumatic stress disorder) Hx of drug abuse Chronic low back pain Hyperlipidemia History of Helicobacter pylori infection Asthma Bipolar disorder COPD (chronic obstructive pulmonary disease) Depression GERD (gastroesophageal reflux disease) Hepatitis C Surgical History History of appendectomy Social History Smoking/Tobacco Use Status: Current every day Smoking risk assessment performed?: Yes Alcohol Intake: current Alcohol Intake frequency: holidays/special occasions only Drug use: Occasionally Substance use type: marijuana Do you feel safe at home: Yes Do you feel safe in your relationship?: Yes
[2023-10-29 13:21] VITALS: BP 170/100; PULSE 80; RESP 16; O2SAT 98
== END 2023-10-29 13:39 | disposition home or self-care (01) ==
LOC: ER 13:46
PROVIDERS: Emergency Provider Emergency Medicine; PCP Specialist/Technologist Athletic Trainer
DX: R19.09 Other intra-abdominal and pelvic swelling, mass and lump (principal); N50.811 Right testicular pain; R03.0 Elevated blood-pressure reading, without diagnosis of hypertension
CPT/HCPCS: 99284; 99283

== ENCOUNTER 2024-03-21 01:25 | Emergency (ER) | payer BC, SELFPAY ==
[2024-03-21] VITALS (19 sets, daily range): BP systolic 112–194; BP diastolic 62–106; PULSE 66–87; RESP 20; O2SAT 94–98
--- OUTSIDE RECORDS SUMMARY | 2024-03-21 01:42 | XMS_ITS | Encounter Summary ---
Author Organization [facility] Address [facility] [place] [address] Care Team Providers Care Escalator Operator Name Role Phone Darlene Coker APRN Primary Care Provider [phone] Encounter Details Date Type Department Care Team (Late st Contact Info) Description 09/06/2011 Orders [place] [address] Rocio Shetty MD [facility] [place] [address] Gastritis (Primary Dx) Social History Tobacco Use Types Packs/Day Years Used Date Smoking Tobacco: Every Day Cigarettes Sex and Gender Information Value Date Recorded Sex Assigned at Not on file Gender Identity Not on file Sexual Orientation Not on file documented as of this encounter Plan of Treatment Not on file documented as of this encounter Visit Diagnoses Diagnosis Gastritis- Primary Unspecified gastritis and gastroduodenitis without mention of hemorrhage documented in this encounter Care Teams Escalator Operator Relationship Specialty Start Date End Date Darlene Coker APRN PCP - General 07/30/11 documented as of this encounter
--- OUTSIDE RECORDS SUMMARY | 2024-03-21 01:42 | XMS_ITS | Encounter Summary ---
Author Organization [facility] Address [facility] [place] [address] Care Team Providers Care Radio News Anchor Name Role Phone Eddy Emeka GISSEL Primary Care Provider [phone] Encounter Details Date Type Department Care Team (Latest Contact Info) Description 07/17/2011 2:33 PM EST - 07/17/2011 11:59 PM EST Hospital Encounter [place] [id number] CLINIC, Rocio Garza MD [facility] [address] Abdominal pain Discharge Disposition: Home Social History Tobacco Use Types Packs/Day Years Used Date Smoking Tobacco: Every Day Cigarettes Sex and Gender Information Value Date Recorded Sex Assigned at Not on file Gender Identity Not on file Sexual Orientation Not on file documented as of this encounter Medications at Time of Discharge Medication Sig Dispensed Refills Start Date End Date ondansetron (ZOFRAN-ODT) 4 mg disintegrating tablet Take 4 mg by mouth every 8 hours as needed. CIS Free Text Med - Albuterol 01/30/2007 sertraline (ZOLOFT) 50 mg tablet 01/30/2007 omeprazole (PRILOSEC) 40 mg capsule 40 MG = 1 Capsule(s), PO, Once daily 01/30/2007 09/06/2011 documented as of this encounter Miscellaneous Notes * Miscellaneous - Provider, Scanning - 07/23/2011 10:46 AM EST documented in this encounter Plan of Treatment Not on file documented as of this encounter Procedures Procedure Name Priority Date/Time Associated Diagnosis Comments CT ABDOMEN AND PELVIS W CONTRAST Routine 07/17/2011 3:17 PM EST Abdominal pain documented in this encounter Results * CT abdomen & pelvis with contrast (07/17/2011 3:17 PM EST) Anatomical Region Laterality Modality Abdomen, Pelvis Computed Tomogra phy 07/17/2011 3:17 PM EST Impressions 07/22/2011 6:10 PM EST IMPRESSION: 1. No significant abnormality identified within the abdomen or pelvis. Narrative 07/22/2011 6:[address] ABDOMEN AND PELVIS: CLINICAL INFORMATION: ??Chronic hepatitis C with right-sided abdominal pain and vomiting. ?? PROCEDURE: ??Helical CT of the abdomen and pelvis was performed with oral contrast and intravenous administration of 110 cc of Omnipaque-350. Multiplanar reformatted images were reviewed. ?? CONTRAST: ??110 cc Omnipaque-350. COMPARISON: ??There are no comparisons. ?? FINDINGS: ?? ABDOMEN: ??Lung bases are unremarkable. The spleen, kidneys, adrenal glands, and pancreas are normal in size and attenuation without focal lesions. The liver is normal in size and attenuation without focal masses. There is no surface nodularity. The portal vein is patent. No biliary dilatation noted and the gallbladder is unremarkable. ?? PELVIS: ??No lymphadenopathy within the abdomen or pelvis. No free intraperitoneal fluid, air, or inflammatory process of bowel or mesentery. No dilated loops of bowel are noted. ?? Small sclerotic focus in the right ilium most consistent with a bone island. No worrisome osseous lesions. ?? Procedure Note Arlene Andrew MD - 07/22/2011 CT ABDOMEN AND PELVIS: CLINICAL INFORMATION: Chronic hepatitis C with right-sided abdominal painand vomiting. PROCEDURE: Helical CT of the abdomen and pelvis was performed with oral contrast and intravenous administration of 110 cc of Omnipaque-350.Multiplanar reformatted images were reviewed. CONTRAST: 110 cc Omnipaque-350. COMPARISON: There are no comparisons. FINDINGS: ABDOMEN: Lung bases are unremarkable. The spleen, kidneys, adrenalglands, and pancreas are normal in size and attenuation without focal lesions. The liver is normal in size and attenuation without focal masses. There is no surface nodularity. The portal vein is patent. No biliary dilatation notedand the gallbladder is unremarkable. PELVIS: No lymphadenopathy within the abdomen or pelvis. No free intraperitoneal fluid, air, or inflammatory process of bowel or mesentery.No dilated loops of bowel are noted. Small sclerotic focus in the right ilium most consistent with a boneisland. No worrisome osseous lesions. IMPRESSION IMPRESSION: 1. No significant abnormality identified within the abdomen or pelvis. Rocio Shetty MD IMG CT ORDERABLES documented in this encounter Visit Diagnoses Diagnosis Abdominal pain Abdominal pain, unspecified site documented in this encounter Administered Medications Inactive Administered Medications - up to 3 most recent administrations Medication Order MAR Action Action Date Dose Rate Site iohexol (OMNIPAQUE) 350 mg/mL injection 17,500 mg 17,500 mg (50 mL), Oral, ONCE PRN, 1 dose, Starting on Fri07/17/11 at 1454, Until Fri07/17/11 at 1300, Per Protocol, Routine Given 07/17/2011 1:00 PM EST 17,500 mg iohexol (OMNIPAQUE) 350 mg/mL injection 38,500 mg 38,500 mg (110 mL), Intravenous, ONCE PRN, 1 dose, Starting on Fri07/17/11 at 1454, Until Fri07/17/11 at 1505, Per Protocol, Routine Given 07/17/2011 3:05 PM EST 38,500 mg documented in this encounter Care Teams Radio News Anchor Relationship Specialty Start Date End Date Emeka Kam APRN [address] [place] [address] PCP - General 05/08/10 07/29/11 documented as of this encounter
--- OUTSIDE RECORDS SUMMARY | 2024-03-21 01:42 | XMS_ITS | Encounter Summary ---
Author Organization [facility] Address [facility] [place] [address] Care Team Providers Care Retaining Room Cutter Name Role Phone MontmorencyDarlene asher Una CHAUHAN Primary Care Provider [phone] Encounter Details Date Type Department Care Team (Latest Contact Info) Description 09/06/2011 9:34 AM EDT - 09/06/2011 11:20 AM EDT Hospital En[place] [id number] Rocio Shin MD [facility] [place] [address] Discharge Disposition: Home Social History Tobacco Use Types Packs/Day Years Used Date Smoking Tobacco: Every Day Cigarettes Sex and Gender Information Value Date Recorded Sex Assigned at Not on file Gender Identity Not on file Sexual Orientation Not on file documented as of this encounter Last Filed Vital Signs Vital Sign Reading Time Taken Comments Blood Pressure 128/72 09/06/2011 11:13 AM EDT Pulse 70 09/06/2011 11:13 AM EDT Temperature 36.5 ??C (97.7 ??F) 09/06/2011 10:24 AM E DT Respiratory Rate 16 09/06/2011 11:13 AM EDT Oxygen Saturation 95% 09/06/2011 11:13 AM EDT Inhaled Oxygen Concentration - - Weight - - Height - - Body Mass Index - - documented in this encounter Discharge Instructions * Discharge Instructions* Tosin Gore RN - 09/06/2011 11:15 AM EDT You may have received medication before and/or during your procedure which effects judgement and reaction time. Do not drive, operate machinery, drink alcoholic beverages, or make important decisions for 24 hours. Be careful on stairs, as you may be unsteady on your feet. You may eat a regular diet as tolerated. Do not smoke if you are alone. IV site-- slight redness or tenderness is normal. You may use a warm compress. If tenderness and redness increases for foul drainage occurs please contact your M.D. Please call [phone] before 5pm with problems, questions or concerns. After 5pm call [phone] and ask to speak with the almond sorter farm contractor buyer. * Attachments The following attachments cannot be sent through Care Everywhere. * UPPER GI ENDOSCOPY: WHAT TO EXPECT AT HOME ([place]) * SEDATION FOR A MEDICAL PROCEDURE: AFTER YOUR VISIT ([place]) documented in this encounter Medications at Time of Discharge Medication Sig Dispensed Refills Start Date End Date ondansetron (ZOFRAN-ODT) 4 mg disintegrating tablet Take 4 mg by mouth every 8 hours as needed. omeprazole (PRILOSEC) 40 mg capsuleIndications:Gastrit is Take 1 capsule by mouth daily. 30 capsule 12 09/06/2011 CIS Free Text Med - Albuterol 01/30/2007 sertraline (ZOLOFT) 50 mg tablet 01/30/2007 documented as of this encounter H&P Notes * Rocio Shin MD - 09/06/2011 10:30 AM EDT Gastroenterology & Hepatology Pre-Procedure History and Physical Procedure: EGD Indication: Dyspepsia History of Present Illness: See my office note from Jun 2011. Symptoms seem worse when anxious. Medications: No current facility-administered medications on file prior to encounter. Current outpatient prescriptions ordered prior to encounter Medication Sig Dispense Refill ??? ondansetron (ZOFRAN-ODT) 4 mg disintegrating tablet Take 4 mg by mouth every 8 hours as needed. ??? CIS Free Text Med - Albuterol ??? sertraline (ZOLOFT) 50 mg tablet ??? omeprazole (PRILOSEC) 40 mg capsule 40 MG = 1 Capsule(s), PO, Once daily Allergies: Allergies Allergen Reactions ??? Codeine Phos ??? Penicillins Exam: Patient Vitals in the past 24 hrs: BP Temp Temp src Pulse Resp SpO2 09/06/11 1052 120/75 mmHg - - 75 18 97 % 09/06/11 1050 128/78 mmHg - - 58 15 100 % 09/06/11 1045 132/73 mmHg - - 65 19 100 % 09/06/11 1024 138/92 mmHg 36.5 ??C (97.7 ??F) Oral 64 18 97 % Chest- clear Heart- RRR, nl s1, s2 Abdomen- normal bowel sounds, soft, non tender Assessment and Plan: Upper Endoscopy. Conscious sedation. Risks and benefits of the procedure were discussed with the patient. Consent has been signed. documented in this encounter Miscellaneous Notes * Miscellaneous - Provider, Scanning - 09/07/2011 1:24 AM EDT * Miscellaneous - Provider, Scanning - 09/06/2011 2:27 PM EDT documented in this encounter Plan of Treatment Not on file documented as of this encounter Procedures Procedure Name Priority Date/Time Associated Diagnosis Comments SURGICAL PATHOLOGY REPORT Routine 09/06/2011 12:24 PM EDT SPECIMEN TO PATHOLOGY Routine 09/06/2011 11:09 AM EDT UPPER GI ENDOSCOPY 09/06/2011 10 :43 AM EDT Abdominal pain UPPER GI ENDOSCOPY Routine 09/06/2011 10 :12 AM EDT documented in this encounter Results * SURGICAL PATHOLOGY REPORT (09/06/2011 12:24 PM EDT) Surgical Pathology Report ? [facility] ? Provider: ?? ROCIO SHIN ? Pt. Name: ?? YNES GREY Carla ? Acc #: ?[id number] ?Pt. ? Col Date: ?? 09/06/2011 ? /Sex: ?1980,(31 years),Male ? Rec Date: ?? 09/06/2011 ? LOC: ?4T ? SURGICAL PATHOLOGY ? ---Pathologic Diagnosis--- ? Stomach, biopsy ?Gastric antrum and body/fundic-type mucosa with H. pylori chronic active ? gastritis. ?Immunostaining for H. pylori is positive. ? CR-0 ? 09/11/11 ? JLL ? 09/12/11 Verified by: ? Cristo Clark MD ? Pathologist ? (Electronic Signature) ? The attending pathologist whose signature appears on this report has ? reviewed all diagnostic slides and has edited the gross and/or ? microscopic portion of the report in rendering the final pathologic ? diagnosis. ? ---Microscopic Description--- ? Immunohistochemistry Studies: ? Formalin-fixed, paraffin-embedded tissue sections are studied using the B- ? SA system technique with appropriate positive and negative controls. ??These ? IHC studies provide the pathologist with adjunctive diagnostic information. ? Antibody specificity has been verified by testing antibodies on a series of ? in-house tissues with known immunohistochemical performance ? characteristics. The clinical interpretation of any antibody positive ? staining or its absence is evaluated within the context of clinical ? presentation, morphology, histopathological criteria and other diagnostic ? tests. ? Block ?Antibody ? Result (Positive/Negative) ? A1 ?H. pylori ?Positive ? ---Gross Description--- ? Labeled/Fixative: ? Biopsy stomach, formalin. ? Qty/Size/Weight: ?Five, ranging from 0.2 cm in diameter to ? 0.3 x 0.2 x 0.1 cm in greatest dimension. ? Tissue Description: ?? Soft, ghotra tissues. ? Sections/Processing: ??(T1) ??aje/PPS ? ---Clinical Information--- ? Specimen Submitted: ? [facility] ? Provider: ?? ROCIO SHIN ? Pt. Name: ?? GREY SAUCEDO ? Acc #: ?[id number] ?Pt. ? Col Date: ?? 09/06/2011 ? /Sex: ?1980,(31 years),Male ? Rec Date: ?? 09/06/2011 ? LOC: ?4T ? SURGICAL PATHOLOGY ? A - Biopsies stomach ? Clinical History/Diagnosis: ? PT with dyspepsia, gastric erythema, duodenitis, ? H pylori CHAKA GENILAM 09/06/2011 12:2 4 PM EDT Rocio Shin MD PATHOLOGY/CYTOLOGY O RDERABLES [facility] * Specimen to Pathology (surgical or derm) (09/06/2011 11:09 AM EDT) AP Specimen 09/06/2011 11:0 9 AM EDT 09/06/2011 11:09 AM EDT Narrative CAHKA YEUNG - 09/06/2011 11:09 AM EDT Specimen requisition ordered. ??Separate Pathology report to follow Rocio Shin MD PATHOLOGY/CYTOLOGY O RDERABLES CHAKA YEUNG * UPPER GI ENDOSCOPY (09/06/2011 10:12 AM EDT) UPPER GI ENDOSCOPY [facility] Endoscopy Patient Name: Grey Saucedo ? Procedure Date: 09/06/2011 10:12 AM ? N: [id number] ? Date of : 1980 ? Age: 31 ? Order #: [id number] ? Procedure: ? Upper GI endoscopy Indications: ? Dyspepsia Providers: ? Rocio Shin MD, Jocelyne Mills RN, ? Darlene Grigsby, Systems Librarian Referring MD: ?Darlene Coker MD Medicines: ? Midazolam 4 mg IV, Fentanyl 100 ? micrograms IV Complications: ? No immediate complications. Procedure: ? Pre-Anesthesia Assessment: ? - Prior to the procedure, a History ? and Physical was performed, and ? patient medications, allergies and ? sensitivities have been reviewed. The ? patient's tolerance of previous ? anesthesia has been reviewed. ? - The risks and benefits of the ? procedure and the sedation options ? and risks were discussed with the ? patient. All questions were answered ? and informed consent was obtained. ? The procedure, indications, benefits, ? risks and alternatives were explained ? to the patient. Specifically ? discussed were potential ? complications including, but not ? limited to, bleeding, perforation, ? infection, missing a cancer, and ? adverse medication reactions. The ? Endoscope was introduced through the ? mouth, and advanced to the third part ? of duodenum. The patient tolerated ? the procedure well. The upper GI ? endoscopy was accomplished without ? difficulty. The patient tolerated the ? procedure well. ? Findings: ? The esophagus was normal. Patchy mildly erythematous ? mucosa was found in the gastric antrum. Biopsies were ? taken with a cold forceps for histology. Patchy ? moderately erythematous mucosa was found in the ? duodenal bulb. ? Impression: ?- Normal esophagus. ? - Gastric mucosal abnormality ? characterized by erythema. This was ? biopsied. ? - Erythematous duodenopathy. Recommendation: ?- Await pathology results for H. ? Pylori? - Trial of acid kavita. ? Rocio Shin MD 09/06/2011 11:06 AM ? Number of Addenda: 0 Note Initiated On: 09/06/2011 10:12 AM PROVATION 09/06/2011 10:1 2 AM EDT Darlene Coker [employer]PM ARCHITECT GENERAL SURGICAL ORD ERABLES PROVATION documented in this encounter Visit Diagnoses Not on filedocumented in this encounter Administered Medications Inactive Administered Medications - up to 3 most recent administrations Medication Order MAR Action Action Date Dose Rate Site sodium chloride 0.9% infusion 30 mL/hr, Intravenous, CONTINUOUS, Starting on Fri09/06/11 at 1045, Until Fri09/06/11 at 1458, Endoscopy (Day of Procedure) New Bag 09/06/2011 10:30 AM EDT 30 mL/hr 30 mL/hr documented in this encounter Active and Recently Administered Medications Times are shown in EDT. Continuous Medication Order 09/04/2011 09/05/2011 09/06/2011 sodium chloride 0.9% infusion (CANCELED) 30 mL/hr, Intravenous, CONTINUOUS, Starting on Fri09/06/11 at 1045, Until Fri09/06/11 at 1458, Endoscopy (Day of Procedure) 1030 (New Bag - Prov ider: Connie Murry RN) PRN Medication Order 09/04/2011 09/05/2011 09/06/2011 fentaNYL 50mcg/mL injection (CANCELED) ONCE PRN, Starting on Fri09/06/11 at 1049, Until Fri09/06/11 at 1458, Pain, Intra-Operative (Intra-Procedure), Routine 1049 (Given - Provid er: Jocelyne Mills RN)1052 (Given - Provider: Jocelyne Mills RN)1054 (Given - Provider: Jocelyne Mills RN) midazolam (VERSED) injection (CANCELED) ONCE PRN, Starting on Fri09/06/11 at 1049, Until Fri09/06/11 at 1458, Sleep, Intra-Operative (Intra-Procedure), Routine 1049 (Given - Provid er: Jocelyne Mills RN)1052 (Given - Provider: Jocelyne Mills RN)1054 (Given - Provider: Jocelyne Mills RN)1055 (Given - Provider: Jocelyne Mills RN)1100 (Given - Provider: oJcelyne Mills RN) documented in this encounter Care Teams Retaining Room Cutter Relationship Specialty Start Date End Date Darlene Coker APRN PCP - General 07/30/11 documented as of this encounter
--- OUTSIDE RECORDS SUMMARY | 2024-03-21 01:42 | XMS_ITS | Encounter Summary ---
Author Organization [facility] Address [facility] [address] Care Team Providers Care Women'S Ministry Director Name Role Phone Darlene Coker APRN Primary Care Provider [phone] Reason for Visit * Reason Onset Date Comments Results 09/19/2011 Encounter Details Date Type Department Care Team (Late st Contact Info) Description 09/19/2011 Telephone [place] [address] Rocio Shetty MD [facility] [place] [address] Results Social History Tobacco Use Types Packs/Day Years Used Date Smoking Tobacco: Every Day Cigarettes Sex and Gender Information Value Date Recorded Sex Assigned at Not on file Gender Identity Not on file Sexual Orientation Not on file documented as of this encounter Miscellaneous Notes * Telephone Encounter - Saadia Downs RN - 09/19/2011 4:11 PM EDT Spoke with patient's mother, who suggested calling sister of patient in an effort to reach him. Left message on identifiable cell phone (Marley) asking for patient to call re: results letter. documented in this encounter Plan of Treatment Not on file documented as of this encounter Visit Diagnoses Not on filedocumented in this encounter Care Teams Women'S Ministry Director Relationship Specialty Start Date End Date Darlene Coker APRN PCP - General 07/30/11 documented as of this encounter
--- OUTSIDE RECORDS SUMMARY | 2024-03-21 01:42 | XMS_ITS | Clinical Summary ---
Author Organization [facility] Address [facility] [place] [address] Care Team Providers Care Supervisor Labor Gang Name Role Phone Darlene Coker APRN Primary Care Provider [phone] Allergies Active Allergy Reactions Criticality Noted Date Comments Codeine Phosphate Penicillins Medications Medication Sig Dispensed Refills Start Date End Date Status CIS Free Text Med - Albuterol 01/30/2007 Active sertraline (ZOLOFT) 50 mg tablet 01/30/2007 Active ondansetron (ZOFRAN-ODT) 4 mg disintegrating tablet Take 4 mg by mouth every 8 hours as needed. Active omeprazole (PRILOSEC) 40 mg capsuleIndications:Gas tritis Take 1 capsule by mouth daily. 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 Depression 07/16/2011 Social History Tobacco Use Types Packs/Day Years Used Date Smoking Tobacco: Every Day Cigarettes Sex and Gender Information Value Date Recorded Sex Assigned at Not on file Gender Identity Not on file Sexual Orientation Not on file Last Filed Vital Signs Vital Sign Reading Time Taken Comments Blood Pressure 128/72 09/06/2011 11:13 AM EDT Pulse 70 09/06/2011 11:13 AM EDT Temperature 36.5 ??C (97.7 ??F) 09/06/2011 10:24 AM E DT Respiratory Rate 16 09/06/2011 11:13 AM EDT Oxygen Saturation 95% 09/06/2011 11:13 AM EDT Inhaled Oxygen Concentration - - Weight 69.9 kg (154 lb) 07/16/2011 8:49 AM EST Height 162.6 cm (5' 4) 07/16/2011 8:49 AM EST Body Mass Index 26.43 07/16/2011 8:49 AM EST Plan of Treatment Health Maintenance Due Date Last Done Comments HIV screen 1997 Lipid Screening 1997 Hepatitis B vaccine (0-59 yrs) (1) 1998 Tetanus/Diphtheria/Pertussis Vaccines (1 - Tdap) 08/11 Covid-19 Vaccine (1 - 2022- season) 2024 Influenza (Flu) vaccine (1 o f 1 - Influenza standard series) 02/15/2024 Care Teams Supervisor Labor Gang Relationship Specialty Start Date End Date Darlene Coker APRN PCP - General 07/30/11
--- OUTSIDE RECORDS SUMMARY | 2024-03-21 01:42 | XMS_ITS | Encounter Summary ---
Author Organization [facility] Address [facility] [place] [address] Care Team Providers Care Wharf Worker Name Role Phone Darlene Coker APRN Primary Care Provider [phone] Encounter Details Date Type Department Care Team (Late st Contact Info) Description 09/16/2011 Orders [place] [address] Rocio Shetty MD [facility] [place] [address] Helicobacter pylori (H. pylori) (Primary Dx) Social History Tobacco Use Types Packs/Day Years Used Date Smoking Tobacco: Every Day Cigarettes Sex and Gender Information Value Date Recorded Sex Assigned at Not on file Gender Identity Not on file Sexual Orientation Not on file documented as of this encounter Plan of Treatment Not on file documented as of this encounter Visit Diagnoses Diagnosis Helicobacter pylori (H. pylori)- Primary documented in this encounter Care Teams Wharf Worker Relationship Specialty Start Date End Date Darlene Coker APRN PCP - General 07/30/11 documented as of this encounter
--- OUTSIDE RECORDS SUMMARY | 2024-03-21 01:42 | XMS_ITS | Encounter Summary ---
Author Organization [facility], Later [facility] Address [facility] [place] [address] Care Team Providers Care Garment Cutter Name Role Phone Mitchell Colunga APRN Primary Care Provider [phone] Reason for Visit * Reason Comments Follow-up Encounter Details Date Type Department Care Team (Late st Contact Info) Description 07/16/2011 8:30 AM EST Office Visit [place] [address] Temitope Shin MD [facility] [place] [address] Abdominal pain (Primary Dx); Hepatitis C; Depression Discharge Disposition: Home Social History Tobacco Use Types Packs/Day Years Used Date Smoking Tobacco: Every Day Cigarettes Sex and Gender Information Value Date Recorded Sex Assigned at Not on file Gender Identity Not on file Sexual Orientation Not on file documented as of this encounter Last Filed Vital Signs Vital Sign Reading Time Taken Comments Blood Pressure 130/80 07/16/2011 8:49 AM EST Pulse 80 07/16/2011 8:49 AM EST Temperature - - Respiratory Rate - - Oxygen Saturation - - Inhaled Oxygen Concentration - - Weight 69.9 kg (154 lb) 07/16/2011 8:49 AM EST Height 162.6 cm (5' 4) 07/16/2011 8:49 AM EST Body Mass Index 26.43 07/16/2011 8:49 AM EST documented in this encounter Progress Notes * Temitope Shin MD - 07/16/2011 10:03 AM EST NEW GASTROENTEROLOGY & HEPATOLOGY CONSULTATION Jose Saucedo 1980 [employer] CONSULTANT: Temitope Shin MD ([id number]) PCP: MITCHELL COLUNGA APRN Requesting Provider: REASON FOR CONSULTATION hepatitis C, abdominal pain HISTORY OF PRESENT ILLNESS Jose Saucedo is a 30 y.o. year old being seen at the request of KAYLA Messer for evaluation of abdominal pain and hepatitis C. He likely acquired hepatitis C either at the age of 11 during her surgery for ruptured appendix when he received a blood transfusion. The other risk factor is a tattoo age 14. He reports developing severe abdominal pain in 2006. The pain was in the epigastrium and right upper quadrant pain associated with nausea and vomiting. At that time the evaluation suggested possible bowel obstruction, however I don't have the records of that. The severity of the pain improved but he was left with intermittent abdominal pain that has persisted since that time. He has pain in the epigastrium and right upper quadrant that comes and goes it is described as sharp. He has nausea mostly in the morning with some dry heaving. He has heartburn daily. His weight has been stable. He doesnot have diarrhea. His bowel habits are a BM every 2 weeks and that is unchanged since he was a child. He has tried sublingual zofran with some relief of nausea. ROS: Constitutional: no weight loss HEENT: no visual changes, no URI symptoms Cardio: no chest pain Resp: no cough, no SOB, no SAVAGE or orthopnea Hem/Lymph: no new lumps or bumps on body GI: see HPI : no dysuria Integumentary: no new rashes Musculoskeletal: no new joint pains Neuro: no new numbness, weakness in extremities PAST MEDICAL/SURGICAL HISTORY Hepatitis C ?? Genotype 1 ?? Viral load 900 IU/ml 2006 ?? Acquired between 1991 and 1997 ?? Never treated Depression ?? Has anxiety as well, there has been a question of whether he may have schizophrenia or bipolar disorder. He is currently trying to obtain psychiatric care. He self medicates with marijuana which calms his mood MEDICATIONS Outpatient prescriptions marked as taking for the 07/16/11 encounter (Office Visit) with TEMITOPE SHIN Medication Sig Dispense Refill ??? ondansetron (ZOFRAN-ODT) 4 mg disintegrating tablet Take 4 mg by mouth every 8 hours as needed. ALLERGIES Allergies Allergen Reactions ??? Codeine Phos ??? Penicillins SOCIAL HISTORY He currently does not have a stable living situation. He is from the mother of his 2 children ages 8, 9 (sons). The children and their mother live with his mother. He stays there a few nights a week, but otherwise moves around to other family members or friends. He is trying to get disability. He smokes 5 to 20 cigarettes/day He drank heavily/binge drinking till 2007 He smokes marijuana daily He has never done IV drugs; he did do nasal cocaine, but made sure never to share straws FAMILY HISTORY Mother, sister, brother all have depression Father has CAD Filed Vitals: 07/16/11 0849 BP: 130/80 Pulse: 80 Height: 162.6 cm (5' 4) Weight: 69.854 kg (154 lb) PHYSICAL EXAM HENT: Sclerae anicteric, pupils equal, round, react to light. Pharynx unremarkable. Neck is supple,no adenopathy, no thyromegaly. Chest is clear. Heart: Regular rate and rhythm. Normal S1, S2, no murmurs. Abdomen: Normal bowel sounds; soft. No obvious hepatosplenomegaly. Mild diffuse ternderness, well healed RLQ scar Extremities: No edema. ASSESSMENT/PLAN A 30-year-old male with chronic hepatitis C who also suffers from abdominal pain nausea vomiting. Idon't think the abdominal symptoms are related to hepatitis C. We discussed hepatitis C as being a condition that will slowly progress to cirrhosis over many years. Treatment of hepatitis C will prevent complications from chronic liver disease. The treatment had several serious side effects the most concerning for him is worsening of depression. Before we initiate further evaluation and treatmentof hepatitis C I suggest he have a psychiatric evaluation and treatment. I he is currently in the process of obtaining that and we will plan on initiating hepatitis C treatment he has been stabilizedfrom a psychiatric standpoint. Abdominal pain etiology is unclear at this time. He clearly has some degree of acid reflux based onhis symptoms. Other possible causes are intermittent bowel obstruction related to adhesions from his past surgery. The pain is not typical of biliary colic. My recommendations for further evaluation or a CT scan of the abdomen and pelvis which we will try to obtain today. I also suggested an upper endoscopy. I will follow him up after these studies are completed. Temitope Shin MD [facility] [address] [place] V: [phone] Copy: KAYLA Messer documented in this encounter Plan of Treatment Not on file documented as of this encounter Procedures Procedure Name Priority Date/Time Associated Diagnosis Comments HCV QUANT Routine 07/16/2011 10:12 AM EST Abdominal pain DIFFERENTIAL, AUTOMATED Routine 07/16/2011 10:12 AM EST PROTHROMBIN TIME Routine 07/16/2011 10:1 2 AM EST Abdominal pain CBC (WITH DIFF) Routine 07/16/2011 10:12 AM EST Abdominal pain TSH Routine 07/16/2011 10:12 AM EST Abdominal pain LIPASE Routine 07/16/2011 10:12 AM EST Abdominal pain AMYLASE Routine 07/16/2011 10:12 AM EST Abdominal pain COMPREHENSIVE METABOLIC PANEL Routine 07/16/2011 10:12 AM EST Abdominal pain HEPATITIS C RNA, QUANTITATIVE, PCR Routine 07/16/2011 10:05 AM EST Abdominal pain UPPER GI ENDOSCOPY Routine 07/16/2011 9: 34 AM EST Abdominal pain documented in this encounter [...] worrisome osseous lesions. ?? Procedure Note Arlene Adnrew MD - 07/22/2011 CT ABDOMEN AND PELVIS: [...] abnormality identified within the abdomen or pelvis. Temitope Shin MD [facility] CT ORDERABLES * DIFFERENTIAL, AUTOMATED (07/16/2011 10:12 AM EST) Neutrophil % 61.2 34.0 - 71.0 % CERNER MILLENNIUM Neutrophil Absolute 5.80 1.50 - 6.30 x10(3)/mcL CERNER MILLENNIUM Lymph % 27.6 19.0 - 53.0 % CERNER MILLENNIUM Lymphocytes Abs 2.6 1.0 - 3.6 x10(3)/mcL CERNER MILLENNIUM Monocyte % 7.0 4.0 - 13.0 % CERNER MILLENNIUM Monocyte Abs 0.7 0.2 - 1.0 x10(3)/mcL CERNER MILLENNIUM Eos % 3.8 0.0 - 7.0 % CERNER MILLENNIUM Eosinophils Abs 0.4 0.0 - 0.5 x10(3)/mcL CERNER MILLENNIUM Basophil % 0.2 0.0 - 2.0 % CERNER MILLENNIUM Baso Absolute 0.0 0.0 - 0.2 x10(3)/mcL CERNER MILLENNIUM Immature Gran % 0.20 0.00 - 0.66 % CERNER MILLENNIUM Comment: Immature granulocytes(IG's)percentage and absolute count will include metamyelocytes, myelocytes, and promyelocytes. Blood smears from CBCs yielding IG's will be scanned manually for concordance. If this scan disagrees with the automated IG or if promyelocytes are noted, a manual differential will be performed. Immature Gran Absolute 0.02 0.00 - 0.05 x10(3)/mcL [facility] Blood specimen (specimen) 07/16/2011 10:12 AM EST 07/16/2011 10:15 AM EST Temitope Shin MD HEMATOLOGY ORDERABLE S [facility] * HCV QUANT (07/16/2011 10:12 AM EST) HCV Viral Load [id number] IU/mL [facility] HCV Viral Load Result: [id number] Indication for Study: Hepatitis C Infection Analysis: A quantitiative real time reverse transcriptase PCR assay was performed on extracted viral RNA for the purpose of quantification. Sample: plasma (0.5 mL minimun volume) Method: Chantel Leonel TaqMAN 48 HCV Linear Range: 43IU/mL - 69,000,000IU/mL (95% CI) Interpretation: The result of this analysis is within the limits of detection of the assay. Note: This assay is being performed in the [facility]. Aleks Forbes, Ph.D. Director, Molecular Pathology [facility] Comment: [VERIFIED DATE]07.19.11 Verified By:Chacha Pollock (Electronic Signature) Blood specimen (specimen) 07/16/2011 10:12 AM EST 07/16/2011 10:15 AM EST Temitope Shin MD HEMATOLOGY ORDERABLE S Performing Organization Address [facility] Phone Number [facility] * Lipase (07/16/2011 10:12 AM EST) Lipase 23 0 - 60 unit/L [facility] Blood specimen (specimen) 07/16/2011 10:12 AM EST 07/16/2011 10:15 AM EST Temitope Shin MD CHEMISTRY ORDERABLES Performing Organization Address [facility] Phone Number [facility] * Amylase (07/16/2011 10:12 AM EST) Amylase 62 28 - 100 unit/L [facility] Blood specimen (specimen) 07/16/2011 10:12 AM EST 07/16/2011 10:15 AM EST Temitope Shin MD CHEMISTRY ORDERABLES Performing Organization Address [facility] Phone Number [facility] * (ABNORMAL) Comprehensive metabolic panel (non-fasting) (07/16/2011 10:12 AM EST) Glucose 106 60 - 199 mg/dL [facility] Comment:Diabetes: >=200 mg/d L plus symptoms Blood Urea Nitrogen 9(L) 10 - 20 mg/dL [facility] Creatinine 1.03 0.80 - 1.50 mg/dL [facility] Sodium 139 135 - 145 mmol/L [facility] Potassium 4.0 3.5 - 5.0 mmol/L [facility] Comment: Please note: ??Patients with WBC >100,000 may have falsely elevated Potassium levels. ??For accurate Potassium quantification in these patients send serum separator tube (gold top) for subsequent determinations. ??Contact the Clinical Chemistry Laboratory if there are any questions. Chloride 103 98 - 107 mmol/L CERNER MILLENNIUM Carbon Dioxide 25 22 - 31 mmol/L CERNER MILLENNIUM Anion Gap 11 5 - 15 mmol/L CERNER MILLENNIUM Calcium 9.5 8.5 - 10.5 mg/dL CERNER MILLENNIUM Protein, Total 7.9 6.4 - 8.3 gm/dL CERNER MILLENNIUM Albumin 4.8 3.2 - 5.2 gm/dL CERNER MILLENNIUM Aspartate Aminotransferase 37 0 - 39 unit/L CERNER MILLENNIUM Alanine Aminotransferase 83(H) 0 - 55 unit/L CERNER MILLENNIUM Alkaline Phosphatase 57 40 - 120 unit/L CERNER MILLENNIUM Bilirubin, Total 0.2 0.2 - 1.3 mg/dL CERNER MILLENNIUM Bilirubin, Direct 0.1 0.0 - 0.3 mg/dL CERNER MILLENNIUM Est Glomerular Filtration Rate >60 >=60 CERNER MILLENNIUM Comment: The National Kidney Disease Education Program (NKDEP) has recommended all laboratories report estimated GFR (eGFR) along with plasma creatinine measurements to assist you with recognition of early kidney disease. Caveats: ??Plasma creatinine should be at steady-state (unchanged within the past week). For patients multiply eGFR by 1.2. The MDRD equation has not been validated for pediatric patients and is only valid for patients with age >= 18 years. At present, NKDEP does NOT recommend using the MDRD equation for drug dosing purposes and pharmacists should continue to use their current dosing methods. In addition, numerical eGFR values greater than 60 ml/min/1.73 square meters should be treated as > 60, and not an exact number due to greater inaccuracies at these higher values. Per NKDEP, they classify normal renal function as any GFR >60ml/min/1.73 square meters; chronic kidney disease when GFR <60, and renal failure when GFR <15. ??This calculation may not be valid for patients with atypical muscle mass (very lean or obese), acute renal failure, and in patients with diabetic kidney disease. References: http://nkdep.nih.gov/resources/NKDEP_Suggestn4Labs_0606_508.pdf http://www.kidney.org/professionals/kls/pdf/faq_gfr.pdf Blood specimen (specimen) 07/16/2011 10:12 AM EST 07/16/2011 10:15 AM EST Temitope Shin MD CHEMISTRY ORDERABLES Performing Organization Address [facility] de Phone Number CHAKA LOZADAIUM * Prothrombin Time (07/16/2011 10:12 AM EST) Prothrombin Time 12.7 12.3 - 14.7 sec CERNER MILLENNIUM Comment: [facility] Transfusion Committee Guidelines: INR less than 2.0, PTT less than OR equal to 43.5 seconds, or Fibrinogen greater than or equal to 100 mg/dl indicate adequate procoagulant activity for hemostasis in patients without underlying bleeding disorders. International Normalization Ratio 0.9 0.9 - 1.1 CERNER MILLENNIUM Blood specimen (specimen) 07/16/2011 10:12 AM EST 07/16/2011 10:15 AM EST Temitope Shin MD HEMATOLOGY ORDERABLE S Performing Organization Address [facility] de Phone Number CERSHAKEEL LOZADAIUM * CBC (with Diff) (07/16/2011 10:12 AM EST) White Blood Cell 9.5 4.0 - 10.0 x10(3)/mcL CERNER MILLENNIUM Red Blood Cell 5.10 4.63 - 6.08 x10(6)/mcL CERNER MILLENNIUM Hemoglobin 15.7 13.7 - 17.5 gm/dL CERNER MILLENNIUM Hematocrit 44.9 40.0 - 51.0 % CERNER MILLENNIUM Mean Cell Volume 88.0 79.0 - 92.0 fL CERNER MILLENNIUM Mean Cell Hemoglobin 30.8 25.6 - 32.2 pg CERNER MILLENNIUM Mean Cell Hemoglobin Concentration 35.0 32.0 - 36.5 gm/dL CERNER MILLENNIUM Platelet 256 145 - 370 x10(3)/mcL CERNER MILLENNIUM RDW Standard Deviation 39.1 35.0 - 46.0 fL CERNER MILLENNIUM RDW coefficient of variation 12.2 10.9 - 14.4 % CERNER MILLENNIUM Mean Platelet Volume 11.5 9.0 - 12.0 fL CERNER MILLENNIUM Blood specimen (specimen) 07/16/2011 10:12 AM EST 07/16/2011 10:15 AM EST Temitope Shin MD HEMATOLOGY ORDERABLE S Performing Organization Address City/State/[facility] Co de Phone Number CHAKA CAROLINAENNIUM * TSH (07/16/2011 10:12 AM EST) Thyroid Stimulating Hormone 1.89 0.27 - 4.20 mcIU/mL CERNER MILLENNIUM Blood specimen (specimen) 07/16/2011 10:12 AM EST 07/16/2011 10:15 AM EST Temitope Shin MD CHEMISTRY ORDERABLES Performing Organization Address City/[facility] Co de Phone Number CHAKA YEUNG documented in this encounter Visit Diagnoses Diagnosis Abdominal pain- Primary Abdominal pain, unspecified site Hepatitis C Unspecified viral hepatitis C without hepatic coma Depression Depressive disorder, not elsewhere classified Abdominal pain Abdominal pain, unspecified site documented in this encounter Care Teams Garment Cutter Relationship Specialty Start Date End Date Mitchell Colunga APRN [address] [place] [address] PCP - General 05/08/10 07/29/11 documented as of this encounter
--- OUTSIDE RECORDS SUMMARY | 2024-03-21 01:42 | XMS_ITS | Encounter Summary ---
Author Organization [facility] Address [facility] [place] [address] Care Team Providers Care Continuous Towel Roller Name Role Phone [place]arlene asher Una CHAUHAN Primary Care Provider [phone] Encounter Details Date Type Department Care Team (Late st Contact Info) Description 09/06/2011 10:30 AM EDT - 09/06/2011 11:30 AM EDT [place] [id number] Rocio Shin MD [facility] [place] [address] UPPER GI ENDOSCOPY Social History Tobacco Use Types Packs/Day Years [...] occurs please contact your M.D. Please call [phone] before 5pm with problems, questions or concerns. After 5pm call [phone] and ask to speak with the corporate intern salesperson books. * Attachments The following attachments cannot be sent through Care Everywhere. * UPPER GI ENDOSCOPY: WHAT TO EXPECT AT HOME (IRAQI) * SEDATION FOR A MEDICAL PROCEDURE: AFTER YOUR VISIT (IRAQI) documented in this encounter Medications at Time [...] 12:24 PM EDT) Surgical Pathology Report ? [facility] ? Provider: ?? ROCIO SHIN ? Pt. Name: ?? JOSE QUICK Carla ? Acc #: ?[id number] ?Pt. ? Col Date: ?? 09/06/2011 ? [...] ? ---Clinical Information--- ? Specimen Submitted: ? [facility] ? Provider: ?? ROCIO SHIN ? Pt. Name: ?? JOSE QUICK ? Acc #: ?[id number] ?Pt. ? Col Date: ?? 09/06/2011 ? /Sex: ?1980,(31 years),Male ? Rec Date: ?? 09/06/2011 ? LOC: ?4T ? SURGICAL PATHOLOGY ? A - Biopsies stomach ? Clinical History/Diagnosis: ? PT with dyspepsia, gastric erythema, duodenitis, ? H pylori CHAKA YEUNG 09/06/2011 12:2 4 PM EDT Rocio Shin MD PATHOLOGY/CYTOLOGY O RDERABLES [facility] * Specimen to Pathology (surgical or derm) (09/06/2011 11:09 AM EDT) AP Specimen 09/06/2011 11:0 9 AM EDT 09/06/2011 11:09 AM EDT Narrative CHAKA YEUNG - 09/06/2011 11:09 AM EDT Specimen requisition ordered. ??Separate Pathology report to follow Rocio Shin MD PATHOLOGY/CYTOLOGY O RDERABLES CHAKA YEUNG * UPPER GI ENDOSCOPY (09/06/2011 10:12 AM EDT) UPPER GI ENDOSCOPY [facility] Endoscopy Patient Name: Jose Quick ? Procedure Date: 09/06/2011 10:12 AM ? N: [id number] ? Date of : 1980 ? Age: 31 ? Order #: [id number] ? Procedure: ? Upper GI endoscopy Indications: ? Dyspepsia Providers: ? Rocio Shin MD, Jocelyne Mills RN, ? Darlene Grigsby, Wireless Development Manager Referring MD: ?Darlene Coker MD Medicines: ? [...] 09/06/2011 10:1 2 AM EDT Darlene Coker MUFFLE WORKER GENERAL SURGICAL ORD ERABLES [employer] documented in this encounter Visit Diagnoses Diagnosis Abdominal pain Abdominal pain, unspecified site documented in this encounter Administered Medications Inactive Administered Medications - up to 3 most recent administrations Medication Order MAR Action Action Date Dose Rate Site fentaNYL 50mcg/mL injection ONCE PRN, Starting on Fri09/06/11 at 1049, Until Fri09/06/11 at 1458, Pain, Intra-Operative (Intra-Procedure), Routine Given 09/06/2011 10:54 AM EDT 25 mcg Given 09/06/2011 10:52 AM EDT 25 mcg Given 09/06/2011 10:49 AM EDT 50 mcg midazolam (VERSED) injection ONCE PRN, Starting on Fri09/06/11 at 1049, Until Fri09/06/11 at 1458, Sleep, Intra-Operative (Intra-Procedure), Routine Given 09/06/2011 11:00 AM E DT 0.5 mg Given 09/06/2011 10:55 AM EDT 0.5 mg Given 09/06/2011 10:54 AM EDT 1 mg sodium chloride 0.9% infusion 30 mL/hr, Intravenous, [...] Provider: Jocelyne Mills RN)1100 (Given - Provider: Jocelyne Mills RN) documented in this encounter Care Teams Continuous Towel Roller Relationship Specialty Start Date End Date Darlene Coker APRN PCP - General 07/30/11 documented as of this encounter
[2024-03-21 01:54] LABS: Lactate 1.2 mmol/L (0.6-1.4)
[2024-03-21 01:57] LABS: Abs Immature Grans 0.04 10^3/uL (0.0-0.06); Absolute Basophil Count 0.03 10^3/uL (0.0-0.2); Absolute Eosinophil Count 0.12 10^3/uL (0.0-0.7); Basophils % 0.2 %; Eosinophils % 0.9 %; HCT 46.6 % (40.0-50.0); HGB 15.4 g/dL (13.5-17.5); Immature Grans % 0.3 %; Lymphocytes % 15.9 %; MCH 29.8 pg (27.0-33.0); MCV 90 fL (80-95); MPV 11.3 fL (8.0-11.0); Monocytes % 10.9 %; Neutrophils % 71.8 %; Platelet Count 264 10^3/uL (130-400); RBC 5.16 10^6/uL (4.36-5.78); RDW-SD 39.9 fL; WBC 12.86 10^3/uL (4.4-10.8)
[2024-03-21 01:58] LABS: Absolute Lymphocyte Count 2.04 10^3/uL (1.2-3.4); Absolute Neutrophil Count 9.23 10^3/uL (1.2-6.7)
[2024-03-21] MEDS: Ketorolac 15 MG/ML VIAL IVP (02:02)
[2024-03-21] MEDS: Dexamethasone 10 MG/ML VIAL IVP (02:02)
[2024-03-21] MEDS: ACETAMINOPHEN 1,000 MG/100 ML BTL 400 MG IVPB (02:02)
[2024-03-21] MEDS: MORPHine 4 MG/ML SYR IVP (02:02)
[2024-03-21 02:11] LABS: ALT 35 U/L (16-63); AST 18 U/L (15-37); Albumin 3.9 g/dL (3.4-5.0); Alkaline Phosphatase 64 U/L (46-116); Anion Gap 9.7 mmol/L (3-11); BUN 6 mg/dL (7-18); Bilirubin, Total 0.51 mg/dL (0.2-1.0); CO2 23.3 mmol/L (21.0-32.0); CREATININE 1.1 mg/dL (0.70-1.30); Calcium 8.9 mg/dL (8.5-10.1); Chloride 104 mmol/L (98-107); Estimated GFR 84.89 (mL/min/1.73m2); Glucose 124 mg/dL (74-106); Potassium 3.7 mmol/L (3.5-5.1); Sodium 137 mmol/L (136-145); Total Protein 7.8 g/dL (6.4-8.2)
[2024-03-21] MEDS: Normal Saline - Diluent 50 ML VIAL IJ (02:19)
[2024-03-21] MEDS: Omnipaque 350 MG/ML 100 ML BTL IJ (02:19)
[2024-03-21] MEDS: CLINDAMYCIN 600 MG/50 ML BAG 100 MG IVPB (02:36)
--- NOTE | 2024-03-21 02:39 | DI.CT_ITS ---
Exam(s) CT FACIAL W EXAM: CT FACIAL W CLINICAL HISTORY: swelling in L face, eval for abscess. TECHNIQUE: Imaging Protocol: Axial computed tomography images with coronal and sagittal reformatted images were created and reviewed CONTRAST MATERIAL: Intravenous: Omnipaque 350 Contrast volume:100 ml contrast route:IV - COMPARISON: CT CT HEAD CERVICAL SPINE WO from 04/28/2019 FINDINGS: Facial Bones: No fracture is noted in the facial bones. Poor dentition with multiple caries. Mult iple Periapical lucencies. The most severe is in the left anterior with erosion of the cortex. Maxi lla involving the anterior bicuspid tooth Sinuses and Mastoids: Mucous retention in floors of left maxillary sinuses. Mild mucosal thickening in the nasal cavity. Globes, extraocular muscles, optic nerves and retrobulbar fat: Normal. Upper aerodigestive tract: Normal. Mandible and bilateral temporomandibular joints: Normal. Soft tissues: Severe swelling in the left lower base but no drainable abscess or fluid collection. IMPRESSION: Severe left facial cellulitis. No drainable abscess or fluid collection. Severe dental disease. Findings most severe at left maxillary bicuspid. RADIATION DOSE DELIVERED: Total DLP DATA REPOSITORY: All CT scans at this facility are submitted to the National Radiology Data Registry (NRDR) Dose Index Registry (DIR) with the [employer] (ACR). RADIATION OPTIMIZATION: All CT scans at this facility use at least one of these dose optimization te chniques: automated exposure control; mA and/or kV adjustment per patient size (includes targeted exa ms where dose is matched to clinical indication); or iterative reconstruction.
--- NOTE | 2024-03-21 02:40 | ED.GENADUL_ITS ---
Discharge Plan Disposition Patient Disposition: Home Condition: Good Discharge Details Clinical Impression: Dental caries Primary Care Provider: Magaly Cardenas ED Provider: Aaron Dyer Home Meds and New Rx's Prescriptions: New amoxicillin-pot clavulanate 875-125 mg tablet 1 tab PO BID Qty: 20 0RF No Action albuterol sulfate [Ventolin HFA] 90 mcg/actuation HFA aerosol inhaler 1 - 2 puff inhalation .Q4-Q6H PRN omeprazole 40 mg capsule,delayed release(DR/EC) 40 mg PO DAILY tramadol 50 mg tablet 50 mg PO TID PRN (Reason: pain) Qty: 7 0RF Discharge Instructions Instructions: Dental Pain ED Additional Instructions: Please take 800 mg of ibuprofen every 6 hours. These are the maximum doses. Please take the antibiotic as directed to help with the infection in your tooth. Please use the dental list that we have provided to contact the dentist for prompt follow-up and evaluation for tooth removal. If you notice any worsening of your symptoms, or any new symptoms such as difficulty swallowing, difficulty breathing, vomiting, diarrhea, fever, chills, shortness of breath, chest pain, numbness, weakness, or fainting , please return immediately to the emergency department for reevaluation. Please follow up with your primary care provider as soon as possible for reassessment and reevaluation. As always, it was a pleasure participating in your medical care today. Referrals: Magaly Cardenas [Primary Care Provider] - [facility] General Date/Time Provider Initiated Documentation: 03/21/24 01:42 . HPI Narrative: 43-year-old male with a past medical history of asthma/COPD, tobacco abuse, previous appendectomy, hepatitis C secondary to blood transfusion during episode of appendectomy, presents today for left facial swelling. Patient states that he has known dental caries, and had his front tooth break off around the canine around 1 week ago, and over the last few days he has noticed swelling in his left upper lip and face. He has been taking Tylenol and Motrin to help control the swelling and pain. He is does not yet have a scheduled appointment with a dentist. He did take a few tablets of leftover amoxicillin yesterday which did slightly improve the symptoms. He denies any numbness or tingling or weakness. He admits to notable pain and pressure in that area. He denies any fever or chills. No other complaints at this time. No other modifying factors. He denies any difficulty swallowing or drinking. Related Data Home Medications ?Medication ?Instructions ?Recorded ?Confirmed albuterol sulfate 90 mcg/actuation 1 - 2 puff inhalation .Q4-Q6H PRN 02/05/21 03/21/24 aerosol inhaler (Ventolin HFA) omeprazole 40 mg capsule,delayed 40 mg PO DAILY 02/05/21 03/21/24 release tramadol 50 mg tablet 50 mg PO TID PRN pain #7 tabs 05/05/21 03/21/24 amoxicillin 875 mg-potassium 1 tab PO BID #20 tabs 03/21/24 clavulanate 125 mg tablet Previous Rx's ?Medication ?Instructions ?Recorded tramadol 50 mg tablet 50 mg PO TID PRN pain #7 tabs 05/05/21 amoxicillin 875 mg-potassium 1 tab PO BID #20 tabs 03/21/24 clavulanate 125 mg tablet Allergies Allergy/AdvReac Type Severity Reaction Status Date / Time nicotine (From Nicoderm ) Allergy Intermediate Skin Rash Unverified 03/21/24 01:32 from patch penicillin V potassium (From Allergy Skin Rash Unverified 03/21/24 01:32 Pen-Vee K) Sulfa (Sulfonamide AdvReac Intermediate NAUSEA AND Unverified 03/21/24 01:32 Antibiotics) HEADACHE codeine AdvReac hyper Unverified 03/21/24 01:32 ziprasidone HCl (From Geodon) AdvReac SEDATION, Unverified 03/21/24 01:32 TREMOR General Stated Complaint: Cellulitis CHACORTA: 3 Review of Systems All systems reviewed & are unremarkable except as noted in HPI and below Exam Narrative Exam Narrative: 1.Const: Well-nourished, Well-developed, appearing stated age 2.Eyes: PERRL, no conjunctival injection, and symmetrical lids. 3.ENT: Atraumatic external nose and ears. Moist MM. Neck: Symmetric, trachea midline, No thyromegaly. Dental caries throughout. Notable swelling over the left side of his face, particularly left upper lip and left inferior orbital area. No tenderness over the upper or lower lids. No evidence of pre or postseptal cellulitis. No pain with movement to the eye. Posterior oropharynx demonstrates no evidence of airway compromise or no swelling in the posterior oropharynx either. No palpable fluctuant area around the lip, however there is mild swelling tenderness and edema there though. 4.CVS: +S1/S2, No murmurs or gallops. Peripheral pulses 2+ and equal in all extremities. Brisk capillary refill in all extremities. 5.RESP: Unlabored respiratory effort. Clear to auscultation bilaterally. No wheezes rales or rhonchi 6.GI: Soft, Nontender/Nondistended, No hepatosplenomegaly. No guarding or rebound. 7.MSK: Normocephalic/Atraumatic, Extremities w/o deformity or ttp No cyanosis or clubbing, Normal movement of all extremities 8.Skin: Warm, Dry. No rashes or lesions. 9.Neuro: graphotype operator II-XII grossly intact. Sensation grossly intact, no focal neurologic deficits. 10.Psych: (AAO) x3. Appropriate mood and affect Course Vital Signs Vital signs: Vital Signs Pulse 87 03/21/24 01:29 Respiratory Rate 20 03/21/24 01:29 Blood Pressure 188/94 H 03/21/24 01:29 Pulse Oximetry 96 03/21/24 01:29 Pulse 71 03/21/24 02:16 Respiratory Rate 20 03/21/24 01:29 Respiratory Effort Normal, Non-Labored 03/21/24 01:33 Blood Pressure 158/84 H 03/21/24 02:16 Blood Pressure Mean 106 03/21/24 02:16 Blood Pressure Position Sitting 03/21/24 01:29 Pulse Oximetry 97 03/21/24 02:35 Oxygen Delivery Method Room Air 03/21/24 01:29 Oxygen Flow Rate 0 03/21/24 01:29 Pain Level 10 03/21/24 01:29 Lab/Test Results Lab/Test Results: 03/21/24 01:40 Blood Blood Culture - Pending 03/21/24 01:34 Blood Blood Culture - Pending Laboratory Tests Range/Units 03/21/24 01:34 WBC (4.4-10.8) 10^3/uL 12.86 H RBC (4.36-5.78) 10^6/uL 5.16 Hgb (13.5-17.5) g/dL 15.4 Hct (40.0-50.0) % 46.6 MCV (80-95) fL 90 MCH (27.0-33.0) pg 29.8 MCHC (32.0-36.0) % 33.0 RDW (11.8-14.1) % 12.0 Plt Count (130-400) 10^3/uL 264 MPV (8.0-11.0) fL 11.3 H Immature Gran % % 0.3 Neutrophils % % 71.8 Lymphocytes % % 15.9 Monocytes % % 10.9 Eosinophils % % 0.9 Basophils % % 0.2 Nucleated RBC % (0.0-0.3) % 0.0 Absolute Neutrophils (1.2-6.7) 10^3/uL 9.23 H Absolute Lymphocytes (1.2-3.4) 10^3/uL 2.04 Absolute Monocytes (0.1-0.8) 10^3/uL 1.40 H Absolute Eosinophils (0.0-0.7) 10^3/uL 0.12 Absolute Basophils (0.0-0.2) 10^3/uL 0.03 VBG Lactate (0.6-1.4) mmol/L 1.2 Sodium (136-145) mmol/L 137 Potassium (3.5-5.1) mmol/L 3.7 Chloride (98-107) mmol/L 104 Carbon Dioxide (21.0-32.0) mmol/L 23.3 Anion Gap (3-11) mmol/L 9.7 BUN (7-18) mg/dL 6 L Creatinine (0.70-1.30) mg/dL 1.1 Est GFR (CKD-EPI 2020) (mL/min/1.73m2) 84.89 Glucose (74-106) mg/dL 124 H Calcium (8.5-10.1) mg/dL 8.9 Total Bilirubin (0.2-1.0) mg/dL 0.51 AST (15-37) U/L 18 ALT (16-63) U/L 35 Alkaline Phosphatase (46-116) U/L 64 Total Protein (6.4-8.2) g/dL 7.8 Albumin (3.4-5.0) g/dL 3.9 Medical Decision Making 43-year-old male with a past medical history of asthma/COPD, tobacco abuse, previous appendectomy, hepatitis C secondary to blood transfusion during episode of appendectomy, presents today for left facial swelling. Patient states that he has known dental caries, and had his front tooth break off around the canine around 1 week ago, and over the last few days he has noticed swelling in his left upper lip and face. He has been taking Tylenol and Motrin to help control the swelling and pain. He is does not yet have a scheduled appointment with a dentist. He did take a few tablets of leftover amoxicillin yesterday which did slightly improve the symptoms. He denies any numbness or tingling or weakness. He admits to notable pain and pressure in that area. He denies any fever or chills. No other complaints at this time. No other modifying factors. He denies any difficulty swallowing or drinking. Physical exam demonstrates swelling in the left upper lip extending to the eye lid, however there is no tenderness for the lids to suggest. Postseptal cellulitis. No signs of airway compromise whatsoever. Because of the node ability of swelling of the lip up towards the eye we will give a dose of 10 mg of Decadron to help with this. Will give NSAID therapy as well as IV antibiotics. We will give clindamycin secondary to suspicion for potential abscess. We will monitor closely and reassess. 3:27 AM Laboratory workup has returned, mild white count of 12.8, no bandemia. Mild left shift. Lactate normal. Electrolytes normal. After medications patient feels much better. Swelling has notably diminished. Pain is notably improved. Repeat exam continues to show no evidence of periapical abscess on palpation. Patient does have a penicillin allergy, however he has tolerated amoxicillin quite regularly. Will transition to Augmentin for home use, will give 2 pills here to go home with and then a prescription as well. Will give the dental sheet for home use, and recommend continued ibuprofen therapy at home for pain control. Patient otherwise stable with no signs of airway compromise, systemic sepsis, or fulminant cellulitis causing sepsis pre or postseptal cellulitis. Patient stable for discharge. Discussed red flags for which to return. I have extensively reviewed the treatment plan and discharge instructions with the patient. I have addressed all patient concerns at this time. The patient was made aware of what symptoms to monitor for that would warrant a return to the emergency department. Discussed the plan with the patient, they demonstrate verbal understanding and agreement with our assessment and plan at this time. The documentation in this chart was dictated using [employer] dictation software. Please excuse any dictation errors. FINDINGS: Paranasal sinuses: There is mild patchy mucoperiosteal thickening in the paranasal sinuses. Orbital cavities: The globes and intraorbital structures appear grossly intact. Nasal cavity: There is rightward deviation of the nasal septum. Teeth: There is poor dentition with scattered dental cavities. There are periapical lucencies suggesting chronic apical periodontitis and/or small periapical abscesses. Of particular note, there is a periapical lucency in the anterior left maxilla surrounding the roots of the left anterior bicuspid with a defect in the overlying alveolar cortical ridge which could allow the periodontal infection into the overlying soft tissues. Clinical correlation is recommended. Bones: No acute facial fracture is seen. Soft tissues: There is extensive soft tissue swelling throughout the left lower face. No subcutaneous fluid collection or soft tissue gas is seen. IMPRESSION: 1. Extensive soft tissue swelling in the left lower face with an appearance suspicious for acute facial cellulitis. Clinical correlation is recommended. No frankly organized drainable soft tissue abscess or soft tissue gas is seen. 2. Poor dentition with dental cavities and periapical lucencies with an appearance suspicious for chronic apical periodontitis and/or nancy periapical abscesses, likely the underlying cause of facial cellulitis. Follow up with a dentist is recommended. Thank you for allowing us to participate in the care of your patient. Dictated and Authenticated by: Matthew Patino MD 03/21/2024 3:08 AM Eastern Time ([place] & [place]) Quality:SDOH Health Related Social Needs: No Data to Display PFSH All Active Problems (Updated 03/21/24 @ 03:34 by Aaron Dyer DO) Dental caries (Acute) Dental abscess (Acute) Ptosis of eyelid, left (Acute) Migraine headache with aura (Acute) Left-sided weakness (Acute) Cellulitis of foot, left (Acute) Medical History Cannabis abuse PTSD (post-traumatic stress disorder) Hx of drug abuse Chronic low back pain Hyperlipidemia History of Helicobacter pylori infection Asthma Bipolar disorder COPD (chronic obstructive pulmonary disease) Depression GERD (gastroesophageal reflux disease) Hepatitis C Surgical History History of appendectomy Social History Smoking/Tobacco Use Status: Current every day Tobacco Type: cigarettes Smoking risk assessment performed?: Yes Alcohol Intake: current Alcohol Intake frequency: holidays/special occasions only Drug use: Occasionally Substance use type: marijuana Housing: apartment Do you feel safe at home: Yes Do you feel safe in your relationship?: Yes
--- NOTE | 2024-03-21 03:08 | DI.VRAD_ITS ---
PROCEDURE INFORMATION: Exam: CT Maxillofacial With Contrast Exam date and time: 03/21/2024 2:27 AM Age: 43 years old Clinical indication: Other: Swelling in L face, eval for abscess TECHNIQUE: Imaging protocol: Computed tomography of the face with contrast. Contrast material: OMNIPAQUE 350; Contrast volume: 100 ml; Contrast route: INTRAVENOUS (IV); COMPARISON: CT HEAD CERVICAL SPINE WO 04/28/2019 10:45 AM FINDINGS: Paranasal sinuses: There is mild patchy mucoperiosteal thickening in the paranasal sinuses. Orbital cavities: The globes and intraorbital structures appear grossly intact. Nasal cavity: There is rightward deviation of the nasal septum. Teeth: There is poor dentition with scattered dental cavities. There are periapical lucencies suggesting chronic apical periodontitis and/or small periapical abscesses. Of particular note, there is a periapical lucency in the anterior left maxilla surrounding the roots of the left anterior bicuspid with a defect in the overlying alveolar cortical ridge which could allow the periodontal infection into the overlying soft tissues. Clinical correlation is recommended. Bones: No acute facial fracture is seen. Soft tissues: There is extensive soft tissue swelling throughout the left lower face. No subcutaneous fluid collection or soft tissue gas is seen. IMPRESSION: 1. Extensive soft tissue swelling in the left lower face with an appearance suspicious for acute facial cellulitis. Clinical correlation is recommended. No frankly organized drainable soft tissue abscess or soft tissue gas is seen. 2. Poor dentition with dental cavities and periapical lucencies with an appearance suspicious for chronic apical periodontitis and/or nancy periapical abscesses, likely the underlying cause of facial cellulitis. Follow up with a dentist is recommended. Dictated and Authenticated by: Matthew Patino MD. Ordering:ANDRES Walker MD
[2024-03-21] MEDS: Amox. 875/Clav. 125, 2 TABS/BTL 1 TAB PO (03:38)
== END 2024-03-21 03:39 | disposition home or self-care (01) ==
PROVIDERS: Emergency Provider Student in an Organized Health Care Education/Training Program; PCP Nurse Practitioner Family
DX: K02.9 Dental caries, unspecified (principal); L03.211 Cellulitis of face; E78.5 Hyperlipidemia, unspecified; J44.9 Chronic obstructive pulmonary disease, unspecified; F17.210 Nicotine dependence, cigarettes, uncomplicated
CPT/HCPCS: 80053; 87040; 96365; 96375; 99285; 70487; 83605; 85025; 99284; J0131; J0737; J1100; J1885; J2270; J3490

== ENCOUNTER 2024-08-12 09:53 | Emergency (ER) | payer OTHER, SELFPAY ==
[2024-08-12 10:07] VITALS: BP 155/109; PULSE 87; RESP 20; TEMP 36.8; O2SAT 99
--- NOTE | 2024-08-12 10:13 | DI.RAD_ITS ---
Exam(s) XR ELBOW RT COMPLETE EXAM: XR ELBOW RT COMPLETE CLINICAL HISTORY: R elbow pain s/p fall. TECHNIQUE: 2D digital imaging was performed. Three views. COMPARISON: No exams were available for comparison FINDINGS: BONES: No acute fracture is present. No bony destructive lesion is seen. Small enthesophyte at dista l triceps tendon. Small echo non spur. JOINTS: The elbow is normally aligned. No joint effusion is seen. SOFT TISSUE: Normal. IMPRESSION: No acute abnormality. DATA REPOSITORY: RADIATION DOSE DELIVERED:
--- NOTE | 2024-08-12 12:28 | W.ED.GENAD ---
Discharge Plan Disposition Patient Disposition: Home Discharge Details Clinical Impression: Lower back pain, Right elbow pain Primary Care Provider: Magaly Cardenas ED Provider: Jane Pham Home Meds and New Rx's Prescriptions: No Action albuterol sulfate [Ventolin HFA] 90 mcg/actuation HFA aerosol inhaler 1 - 2 puff inhalation .Q4-Q6H PRN omeprazole 40 mg capsule,delayed release(DR/EC) 40 mg PO DAILY tramadol 50 mg tablet 50 mg PO TID PRN (Reason: pain) Qty: 7 0RF Discharge Instructions Additional Instructions: Please call your primary care provider's office first thing in the morning to schedule a follow-up appointment for next week. There is no sign of fracture in your elbow. Please continue using ice for 15 to 20 minutes at a time every hour. Elevate above heart level. Rest for comfort. Do gentle range of motion exercises. Naproxen can be used according to package instructions for discomfort to your lower back and your elbow. Referrals: Magaly Cardenas [Primary Care Provider] - [facility] General Date/Time Provider Initiated Documentation: 08/12/24 10:12. [facility] Narrative: Jose is a 44 year old male who presents to the emergency department today for evaluation of right elbow pain and lower back discomfort after slipping and falling on ice in the driveway at work. He reports he fell flat onto his back, saw stars but otherwise denies loss of consciousness. He is reporting lower back discomfort on the lower side spine, as well as the right elbow. He has good sensation and movement in fingers. He has pain with flexion of the elbow, can feel muscles for when he does this. Elbow has swollen since the incident occurred. He took Aleve immediately after incident, says that that has helped. Denies significant headache, neck pain, extremity weakness, chest pain, difficulty breathing,/vomiting, vision changes, dizziness. Denies relevant significant past medical history other than hepatitis; patient does not drink alcohol. Physical exam reassuring. Jose is alert and oriented, no acute distress. Elbow is held in extension for comfort. CMS to fingers, brisk cap refill. Sensation grossly intact.+ Easy work of breathing, lung sounds clear bilaterally. Normal heart sounds. Mild tenderness to paraspinal muscles of lower back, no C-spine/T-spine or L-spine step-off/tenderness/deformity. D/dx includes but is not limited to: Fracture, contusion, sprain, other soft tissue injury. No red flags concerning for spinal injury, head injury, intrathoracic or intra-abdominal injury requiring emergent diagnostic imaging. No concern for neurovascular compromise at this time. I independently interpreted the following tests: Right elbow x-ray, no obvious fracture noted. This was confirmed by radiologist History and presentation consistent with contusion/soft tissue injury to elbow. Reviewed discharge instructions with patient, including symptomatic management and red flags indicating need for return to emergency care. He voices agreement with plan of care. Related Data Home Medications ?Medication ?Instructions ?Recorded ?Confirmed albuterol sulfate 90 mcg/actuation 1 - 2 puff inhalation .Q4-Q6H PRN 02/05/21 08/12/24 aerosol inhaler (Ventolin HFA) omeprazole 40 mg capsule,delayed 40 mg PO DAILY 02/05/21 08/12/24 release tramadol 50 mg tablet 50 mg PO TID PRN pain #7 tabs 05/05/21 08/12/24 Previous Rx's ?Medication ?Instructions ?Recorded tramadol 50 mg tablet 50 mg PO TID PRN pain #7 tabs 05/05/21 Allergies Allergy/AdvReac Type Severity Reaction Status Date / Time nicotine (From Nicoderm CQ) Allergy Intermediate Skin Rash Verified 08/12/24 10:06 from patch penicillin V potassium (From Allergy Skin Rash Verified 08/12/24 10:06 Pen-Vee K) Sulfa (Sulfonamide AdvReac Intermediate NAUSEA AND Verified 08/12/24 10:06 Antibiotics) HEADACHE codeine AdvReac hyper Verified 08/12/24 10:06 ziprasidone HCl (From Geodon) AdvReac SEDATION, Verified 08/12/24 10:06 TREMOR General Stated Complaint: Fall/Non TraumaCriteria CHACORTA: 3 Review of Systems Narrative: See HPI Exam Const General: cooperative, healthy appearing, comfortable and no acute distress Nutritional Appearance: average body habitus HENIN Head: normal to inspection and atraumatic Resp Effort & Inspection: normal respiratory effort and able to speak in complete sentences Back/Spine/Pelvis Cervical Spine: normal cervical lordosis and cervical ROM normal Thoracic/Lumbar Spine: thoracic and lumbar spine normal to inspection and paraspinal tenderness (lower back) Skin General skin exam: no rashes or lesions noted Trauma: no lacerations or abrasions Neuro General: patient alert, patient oriented x3, tone normal, moves all extremities and no focal motor deficits Cognition: normal cognition Speech: speech normal Gait: normal gait Extrem Right upper extremity: full ROM, normal capillary refill and elbow/forearm Details: tenderness Location: of the olecranon, swelling Location: of the olecranon and normal ROM; no unusual warmth, no abrasions, no lacerations, no ecchymosis, no crepitus and no deformity Course Vital Signs Vital signs: Vital Signs Temperature 36.8 C 08/12/24 10:07 Pulse 87 08/12/24 10:07 Respiratory Rate 20 08/12/24 10:07 Blood Pressure 155/109 H 08/12/24 10:07 Pulse Oximetry 99 08/12/24 10:07 Temperature 36.8 C 08/12/24 10:07 Temperature Source Temporal Artery Scan 08/12/24 10:07 Pulse 87 08/12/24 10:07 Respiratory Rate 20 08/12/24 10:07 Blood Pressure 155/109 H 08/12/24 10:07 Blood Pressure Position Sitting 08/12/24 10:07 Pulse Oximetry 99 08/12/24 10:07 Oxygen Delivery Method Room Air 08/12/24 10:07 Oxygen Flow Rate 0 08/12/24 10:07 Pain Level 9 08/12/24 10:07 Medical Decision Making Imaging Data Radiologic Study: Radiologist's impression: Exam(s) XR ELBOW RT COMPLETE EXAM: XR ELBOW RT COMPLETE CLINICAL HISTORY: R elbow pain s/p fall. TECHNIQUE: 2D digital imaging was performed. Three views. COMPARISON: No exams were available for comparison FINDINGS: BONES: No acute fracture is present. No bony destructive lesion is seen. Small enthesophyte at distal triceps tendon. Small echo non spur. JOINTS: The elbow is normally aligned. No joint effusion is seen. SOFT TISSUE: Normal. IMPRESSION: No acute abnormality. Quality:SDOH Health Related Social Needs: No Data to Display PFSH All Active Problems (Updated 08/12/24 @ 12:29 by Jane Devries) Right elbow pain (Acute) Lower back pain (Acute) Dental abscess (Acute) Ptosis of eyelid, left (Acute) Migraine headache with aura (Acute) Left-sided weakness (Acute) Cellulitis of foot, left (Acute) Medical History Cannabis abuse PTSD (post-traumatic stress disorder) Hx of drug abuse Chronic low back pain Hyperlipidemia History of Helicobacter pylori infection Asthma Bipolar disorder COPD (chronic obstructive pulmonary disease) Depression GERD (gastroesophageal reflux disease) Hepatitis C Surgical History History of appendectomy Social History Smoking/Tobacco Use Status: Current every day Tobacco Type: cigarettes Smoking risk assessment performed?: Yes Alcohol Intake: current Alcohol Intake frequency: holidays/special occasions only Drug use: Occasionally Substance use type: marijuana Housing: apartment Do you feel safe at home: Yes Do you feel safe in your relationship?: Yes
== END 2024-08-12 12:48 | disposition home or self-care (01) ==
PROVIDERS: Emergency Provider Nurse Practitioner Family; PCP Nurse Practitioner Family
DX: M25.521 Pain in right elbow (principal); M54.50 Low back pain, unspecified; E78.5 Hyperlipidemia, unspecified; J44.9 Chronic obstructive pulmonary disease, unspecified; F17.210 Nicotine dependence, cigarettes, uncomplicated
CPT/HCPCS: 99283; 73080

== ENCOUNTER 2024-12-24 10:27 | Emergency (ER) | payer OTHER, SELFPAY ==
[2024-12-24 10:38] VITALS: BP 120/76; PULSE 66; RESP 20; TEMP 36.7; O2SAT 95
--- NOTE | 2024-12-24 10:45 | W.ED.GENAD ---
Discharge Plan Disposition Patient Disposition: Home Discharge Details Clinical Impression: Pain in right elbow Primary Care Provider: Magaly Cardenas ED Provider: Zach Jc Home Meds and New Rx's Prescriptions: Continued albuterol sulfate [Ventolin HFA] 90 mcg/actuation HFA aerosol inhaler 1 - 2 puff inhalation .Q4-Q6H PRN omeprazole 40 mg capsule,delayed release(DR/EC) 40 mg PO DAILY tramadol 50 mg tablet 50 mg PO TID PRN (Reason: pain) Qty: 7 0RF Discharge Instructions Additional Instructions: You are seen in the emergency department arm pain. Your x-ray showed no signs of any fractures. Please follow up with you primary care as needed. Stand Alone Forms: Work Release Discharge Data Discharge Date/Time-TO BE ENTERED AT DEPARTURE: 12/24/24 12:27 HPI General Date/Time Provider Initiated Documentation: 12/24/24 10:40. HPI Narrative: MDM This is an overall very well-appearing normothermic and not tachycardic [id number] male with right elbow pain and reassuring x-ray for which patient will be discharged with an empiric trial of expectant outpatient management. No pain out of proportion to suggest necrotizing soft tissue infection. No significant erythema nor limitations in range of motion to suggest septic joint. No palpable cords nor history of recent PICC lines nor IV drug use to suggest increased risk for right upper extremity DVT so I did not feel that patient required a right upper quadrant ultrasound. Right hand warm and well-perfused so I am not concerned for critical limb ischemia so I do not feel that patient requires a CT angiogram of his upper extremity. No erythema to suggest cellulitis. No fluctuance to suggest abscess. Patient I discussed that if he develop any significant pain in his hand could not move his elbow or if he had any other concerns that he should return to the emergency department. Otherwise patient was discharged with empiric trial of expectant outpatient management. HPI This is a patient with a history of a fall presenting with elbow pain. The patient experienced a fall at his workplace in 02/2024, during which he landed heavily on his elbow. He was initially brought to this facility for evaluation, where his elbow was iced, and an x-ray was performed. He was advised to follow up with his primary care physician. However, due to communication issues following a merger with another firm and the establishment of a new calling system, he was unable to consult his primary care physician. He reports that his elbow primarily hurts on the inside and tightens when he fully extends his arm. The muscle strap in the area swells and reddens by the end of each workday. He also notes an increased protrusion of one of the bones in his elbow compared to its previous state. To manage the swelling, he has been applying Bengay or ice. He finally managed to come to the facility for follow-up as he could not get to his primary care physician and was advised on his discharge papers to return here if he couldn't follow up with his doctor. Exam General: Well-appearing in no acute distress speaking in complete sentences. Head: Normocephalic, atraumatic. Eye: Extraocular eye movements intact. No conjunctival injection. No scleral icterus. Ear, nose, mouth, throat: Grossly normal inspection. Normal voice, handling secretions normally. Neck: Trachea midline. Cardiovascular: Well-perfused distal extremities. Respiratory: Nonlabored respiration. Gastrointestinal: Nondistended abdomen. Musculoskeletal: Right hand warm well-perfused with intact sensation and motor function across the radial, median, ulnar nerve distributions. Full range of motion right arm at the shoulder, elbow, forearm, and hand. 2+ radial pulse. Cap refill less than 2 seconds right fingertips. Skin: Normal for age and race, grossly normal temperature and turgor. No acute rash. Neurologic: Alert and appropriate, no apparent acute deficits. GCS 15 Psychiatric: Mood and manner are appropriate. Grooming and personal hygiene are appropriate. Related Data Home Medications ?Medication ?Instructions ?Recorded ?Confirmed albuterol sulfate 90 mcg/actuation 1 - 2 puff inhalation .Q4-Q6H PRN 02/05/21 12/24/24 aerosol inhaler (Ventolin HFA) omeprazole 40 mg capsule,delayed 40 mg PO DAILY 02/05/21 12/24/24 release tramadol 50 mg tablet 50 mg PO TID PRN pain #7 tabs 05/05/21 12/24/24 Previous Rx's ?Medication ?Instructions ?Recorded tramadol 50 mg tablet 50 mg PO TID PRN pain #7 tabs 05/05/21 Allergies Allergy/AdvReac Type Severity Reaction Status Date / [facility] Allergy Intermediate Skin Rash Verified 12/24/24 10:42 from patch penicillin V potassium (From Allergy Skin Rash Verified 12/24/24 10:42 Pen-Vee K) Sulfa (Sulfonamide AdvReac Intermediate NAUSEA AND Verified 12/24/24 10:42 Antibiotics) HEADACHE codeine AdvReac hyper Verified 12/24/24 10:42 ziprasidone HCl (From Geodon) AdvReac SEDATION, Verified 12/24/24 10:42 TREMOR General Stated Complaint: Orthopedic CHACORTA: 4 Course Vital Signs Vital signs: Vital Signs Temperature 36.7 C 12/24/24 10:38 Pulse 66 12/24/24 10:38 Respiratory Rate 20 12/24/24 10:38 Blood Pressure 120/76 12/24/24 10:38 Pulse Oximetry 95 12/24/24 10:38 Temperature 36.7 C 12/24/24 10:38 Temperature Source Tympanic 12/24/24 10:38 Pulse 66 12/24/24 10:38 Respiratory Rate 20 12/24/24 10:38 Blood Pressure 120/76 12/24/24 10:38 Pulse Oximetry 95 12/24/24 10:38 Oxygen Delivery Method Room Air 12/24/24 10:38 Oxygen Flow Rate 0 12/24/24 10:38 Pain Level 0 12/24/24 10:38 PFSH All Active Problems (Updated 12/24/24 @ 12:15 by Zach Jc MD) Pain in right elbow (Acute) Dental abscess (Acute) Ptosis of eyelid, left (Acute) Migraine headache with aura (Acute) Left-sided weakness (Acute) Cellulitis of foot, left (Acute) Medical History Cannabis abuse PTSD (post-traumatic stress disorder) Hx of drug abuse Chronic low back pain Hyperlipidemia History of Helicobacter pylori infection Asthma Bipolar disorder COPD (chronic obstructive pulmonary disease) Depression GERD (gastroesophageal reflux disease) Hepatitis C Surgical History History of appendectomy Social History Smoking/Tobacco Use Status: Current every day Tobacco Type: cigarettes Smoking risk assessment performed?: Yes Alcohol Intake: current Alcohol Intake frequency: holidays/special occasions only Drug use: Occasionally Substance use type: marijuana Housing: apartment Do you feel safe at home: Yes Do you feel safe in your relationship?: Yes
--- NOTE | 2024-12-24 11:48 | DI.RAD_ITS ---
Exam(s) XR ELBOW RT COMPLETE EXAM: XR ELBOW RT COMPLETE CLINICAL HISTORY: right elbow pain. TECHNIQUE: 2D digital imaging was performed. COMPARISON: CR XR ELBOW RT COMPLETE from 08/12/2024 FINDINGS: 3 views No evidence of acute fracture or joint effusion and there is no swelling of the olecranon bursa. Small enthesophyte is again noted posteriorly at the triceps insertion on the posterior olecranon, unchanged. There is no soft tissue swelling at this level. There are no degenerative changes in the elbow joint and no loose intra- articular bodies. Epicondyles appear unremarkable. Bone density normal. No significant osseous lesions. IMPRESSION: No significant osseous findings in the elbow and no significant change compared to images of July 2024. DATA REPOSITORY: RADIATION DOSE DELIVERED:
== END 2024-12-24 12:27 | disposition home or self-care (01) ==
PROVIDERS: Emergency Provider Emergency Medicine; PCP Nurse Practitioner Family
DX: M25.521 Pain in right elbow (principal); E78.5 Hyperlipidemia, unspecified; J44.9 Chronic obstructive pulmonary disease, unspecified
CPT/HCPCS: 99283; 73080